=== PATIENT | female | born 1965 | race African-American/Black ===

== ENCOUNTER 2024-03-19 10:01 | Outpatient (REF) | payer OTHER, SELFPAY | END 2024-03-19 10:02 | disposition home or self-care (01) | LOC: HO.LNP 10:01 | PROVIDERS: Visit Provider Internal Medicine Gastroenterology | DX: Z13.89 Encounter for screening for other disorder (principal) | CPT/HCPCS: 83013 ==

== ENCOUNTER 2024-03-19 10:01 | Outpatient (AMB) | payer OTHER, SELFPAY ==
--- NOTE | 2024-03-19 10:03 | MHC.OFFVIS ---
Vital Signs 03/19/24 10:18 Height 5 ft 6 in Weight 141 lb 1.533 oz BMI 22.8 Intake Visit Reasons: Dr.Hassan sneed to see pt Intake Note: Deidre presents in the office as a new patient appt. CC: She states that she was in [place] and she had a GI bleed. She walked in the building and got a stomach pains but she states it could be anxiety. She also had a procedure due to the GI bleed. Final Operations Technician Required: No Allergies aspirin Allergy (Mild, Verified 03/19/24 10:18) Unknown HPI HPI Dr.Hassan sneed to see pt: Details: HPI 58 yr old f here for assessment she was in [place] 6 weeks ago she had vomiting and passed out, she had no abdominal pain she had an EGD as she was anemic and had HGB 8.6 g/dl she had an area of oozing in LES and had 5 clips placed Since then been feeling weak, she has been on iron no melena, no rectal bleeding, no nose bleeds she had anemia few years back at [facility] and had upper and lower GI, with caspule, nothing found does not take nsaid or aspirin ROS: Constitutional : No Weight loss, No Fever, No Chills ENT/Mouth : No sore throat, No Rhinorrhea Eyes: No Swelling, No Redness Cardiovascular : No Chest Pain, No SOB, No Edema Respiratory : No Cough, No Sputum, No Wheezing Gastrointestinal : see HPI Genitourinary : NO Dysuria, No Urinary Frequency, No Hematuria, No Urgency Musculoskeletal : No joint pain, No Myalgias, No Joint Swelling Skin : No Skin Lesions, No rash Neuro : No Weakness, No Numbness, No Dizziness, No Headache Psych : No Anxiety/Panic, No Depression Heme/Lymph: No Bruising, No Lymphadenopathy Endocrine : No Polyuria, No Polydipsia All other systems reviewed and are negative. Medical History osteopenia Surgical History EGD 6 weeks ago EGD and colo, capsule few years back Family History denies FH of ulcers, GI bleeding cancers Social History non smoker, no alcohol, no drug EXAM: GENERAL: The patient is well developed and nontoxic. VITAL SIGNS:see workflow HEENT: Nonicteric sclerae, PERRLA, EOMI. Oropharynx clear. Moist mucous membranes. Conjunctivae appear well perfused. No thyroid mass. CHEST: Chest wall is nontender. HEART: Regular rate and rhythm without murmurs. LUNGS: Clear to auscultation bilaterally. ABDOMEN: Soft, positive bowel sounds, nontender, no organomegaly.no flank tenderness SKIN: No rash, no excessive bruising, petechiae, or purpura. NEUROLOGIC: Cranial nerves II-XII intact without motor/sensory deficit. Psych: normal affect A/P: 1/ Anemia, Acute blood loss, concern for ongoing loss, had EGD with bleeding point lower esophagus, not on PPI PLAN: 1/ check h pylori today 2/ urgent EGD for blood loss anemia --if neg then colo and maybe VCE [facility] Surgical History (Updated 03/19/24 @ 10:22 by DORA Ahumada) Hx of hysterectomy History of esophagogastroduodenoscopy (EGD) Hx of colonoscopy Physical Exam Vital Signs: BMI result Body Mass Index 22.8 Assessment & Plan Assessment & Plan (1) Anemia: Code(s): D64.9 - Anemia, unspecified Category: Medical Plan: see above Coding Level of Care Code New Pt Level 4 (39164) Diagnoses Anemia D64.9
[2024-03-19 10:18] VITALS: BMI 22.8
== END 2024-03-19 11:03 | disposition home or self-care (01) ==
PROVIDERS: PCP Internal Medicine; Visit Provider Internal Medicine Gastroenterology
DX: D64.9 Anemia, unspecified (principal)
CPT/HCPCS: 99204

== ENCOUNTER 2024-03-19 17:47 | Outpatient (REF) | payer OTHER, SELFPAY ==
[2024-03-26 14:24] LABS: H Pylori Breath Test Negative (Negative)
== END 2024-03-19 17:48 | disposition home or self-care (01) ==
LOC: HO.LNP 17:47
PROVIDERS: Visit Provider Internal Medicine Gastroenterology
DX: D64.9 Anemia, unspecified (principal)
CPT/HCPCS: 83013

== ENCOUNTER 2024-03-24 12:17 | Day surgery (SDC) | payer OTHER, SELFPAY ==
--- NOTE | 2024-03-23 09:34 | HO.ANESPROP2 ---
Documented by User: Oksana Olivo NP 03/23/24 09:35 HPI - Anesthesia Eval Consult details Narrative: 58yo F for Upper Endoscopy PMFSH Active Problems Active Problems: All Active Problems Anemia (Acute) Surgical History Surgical History Hx of hysterectomy History of esophagogastroduodenoscopy (EGD) Hx of colonoscopy Meds Allergies Allergy/AdvReac Type Severity Reaction Status Date / Time aspirin Allergy Mild Unknown Verified 03/19/24 10:18 Home Medications ?Medication ?Instructions ?Recorded ?Confirmed ?Last Taken ?Type alendronate 70 mg tablet 70 mg PO QWEEK 03/19/24 Unknown History calcium pantothenate 500 mg tablet 1,200 mg PO 03/19/24 Unknown History cholecalciferol (vitamin D3) 10 10 mcg PO DAILY 03/19/24 Unknown History mcg (400 unit) capsule ferrous gluconate 324 mg (37.5 mg 324 mg PO BID 03/19/24 Unknown History iron) tablet Assessment and Plan Assessment Anesthesia Assessment: Chart Reviewed Documented by User: Luis Enrique Alan MD 03/24/24 15:00 PMFSH Family History Family history of problems with anesthesia: No Surgical History Surgical History Hx of hysterectomy History of esophagogastroduodenoscopy (EGD) Hx of colonoscopy History of Problems with Anesthesia: No Meds Allergies Allergy/AdvReac Type Severity Reaction Status Date / Time aspirin Allergy Mild Unknown Verified 03/19/24 10:18 Home Medications ?Medication ?Instructions ?Recorded ?Confirmed ?Last Taken ?Type alendronate 70 mg tablet 70 mg PO QWEEK 03/19/24 Unknown History calcium pantothenate 500 mg tablet 1,200 mg PO 03/19/24 Unknown History cholecalciferol (vitamin D3) 10 10 mcg PO DAILY 03/19/24 Unknown History mcg (400 unit) capsule ferrous gluconate 324 mg (37.5 mg 324 mg PO BID 03/19/24 Unknown History iron) tablet Exam Airway Mallampati Class: II TM Dist: >3cm Neck ROM: Full Loose/Missing/Broken Teeth: No Heart: ok Lungs: ok Assessment and Plan Assessment Anesthesia Assessment: Anesthesia Plan Discussed Final Anesthetic Review Family History of Problems with Anesthesia: No History of Problems with Anesthesia: No NPO: Yes ASA Class: I Final Preanesthetic Review: No Changes in Pt Med Stat, Meds/Allgs Chart Reviewed, Consent Obtained/Reviewed and Anes Risks/Benef Reviewed Patient Risk: Low Procedure Risk: Intermediate Anesthetic Plan Anesthetic Plan: Agree w/ Assess. and Plan and TIVA Disposition: Standard PACU
[2024-03-24 14:14] VITALS: BMI 22.6
[2024-03-24 14:46] VITALS: BP 134/80; PULSE 72; RESP 16; TEMP 36.6; O2SAT 99
[2024-03-24] MEDS: Lactated Ringers 1,000 ML 100 ML IVCONT (14:53)
--- NOTE | 2024-03-24 14:53 | MHC.SHP ---
Pre-Procedural Eval Section A - 24 Hr Update-Section A only Date of Service: 03/24/24 The patient is an INPATIENT: No The patient has been examined within 24 hours of the surgical procedure. The History & Physical has been completed within 30 days and I have reviewed it.: Yes Section B - Complete if H&P > 30 days Chief Complaint: Anemia, unspecified Allergies: Allergies Allergy/AdvReac Type Severity Reaction Status Date / Time aspirin Allergy Mild Unknown Verified 03/19/24 10:18 Plan Diagnosis/Plan: Unchanged I have reviewed the history and physical and performed a pertinent physical examination on my patient. No changes have occurred unless specified. Time Spent With Patient Time: Total time managing care of this patient today ____ minutes.
--- NOTE | 2024-03-24 15:22 | W.PM.OPN ---
Operative Note Operative Note Date of Service: 03/24/24 Narrative: Procedure Description: EGD Indication: anemia Anesthesia: MAC FLEXIBLE TRANSORAL UPPER GASTROINTESTINAL ENDOSCOPY UPPER ENDOSCOPY Consent: Indications for the procedure and potential complications of bleeding, perforation, reaction to medications and missed diagnosis were discussed with the patient and informed consent was obtained. Instrument: Olympus GIF H 190 J mid size upper endoscope Monitoring: Vital signs and clinical assessment, continuous EKG monitoring, Pulse oximetry, Carbon Dioxide monitoring and blood pressure monitoring were done throughout the procedure. Procedure: The patient was placed in the left lateral decubitis position and pre-procedure medications were administered and a bite block was placed. The endoscope was inserted into the mouth and advanced under direct vision to the third part of duodenum. A careful inspection was made as the upper endoscope was withdrawn including a retroflexed examination of the proximal stomach; Findings and interventions are described below. Findings: Larynx:normal Esophagus: GE junction at 38 cm, diaphragm hiatus at 38 cm, mild esophagitis and irregular z line, bx taken from GEJ, and distal esophagus. one biopsy site continually oozed, x 3 clips applied and hemospray and it ceased, mucosa seemed friable Stomach: patchy atrophic areas with raised erythematous areas possible infiltrative disease . Biopsies were obtained. Grade 2 flap valve on retroflexed examination of the cardia. Duodenum: Normal bulb and descending duodenum, bx taken Intervention: Biopsies as noted above, hemospray Impression/Findings: gastritis PLAN: sucralfate 1 g for 2 weeks GERD precautions if h pylori pos then treat
[2024-03-24 15:31] VITALS: BP 103/67; PULSE 106; RESP 18; TEMP 36.1; O2SAT 99
[2024-03-24 15:46] VITALS: BP 134/90; PULSE 85; RESP 18; TEMP 36.1; O2SAT 99
[2024-03-24 16:00] VITALS: BP 126/79; PULSE 61; RESP 16; TEMP 36.1; O2SAT 99
== END 2024-03-24 16:25 | disposition home or self-care (01) ==
PROVIDERS: PCP Internal Medicine; Visit Provider Internal Medicine Gastroenterology
PROC: 0DJ08ZZ Inspection of Upper Intestinal Tract, Via Natural or Artificial Opening Endoscopic (ICD-10-PCS; CPT 43235; principal; 2024-03-24 15:00)
DX: D64.9 Anemia, unspecified (principal); K29.50 Unspecified chronic gastritis without bleeding; B96.81 Helicobacter pylori [H. pylori] as the cause of diseases classified elsewhere; K22.2 Esophageal obstruction; M85.80 Other specified disorders of bone density and structure, unspecified site; Z88.6 Allergy status to analgesic agent; Z98.890 Other specified postprocedural states
CPT/HCPCS: 43239; 88305; 88313; 88342; J1610; J2003; J2704

== ENCOUNTER → 2024-03-24 12:17 | Outpatient (BNV) | payer OTHER, SELFPAY | PROVIDERS: PCP Internal Medicine; Visit Provider Internal Medicine Gastroenterology | DX: D64.9 Anemia, unspecified (principal); K20.90 Esophagitis, unspecified without bleeding; K29.70 Gastritis, unspecified, without bleeding | CPT/HCPCS: 43239 ==

== ENCOUNTER 2024-03-25 08:17 | Outpatient (AMB) | payer OTHER, SELFPAY ==
--- NOTE | 2024-03-25 09:18 | AM.OFFVISNUR ---
Intake Visit Reasons: H.pylorli Breath Test Allergies aspirin Allergy (Mild, Verified 03/19/24 10:18) Unknown Nursing Note Patient presents for collection of H Pylori breath test. Patient has been fasting for 1 hour (nothing to eat, drink, no chewing gum or smoking) has not taken any antacid medication for at least 2 weeks and has no allergies to artificial sweeteners.?? Assessment & Plan Assessment & Plan (1) H. pylori infection: Code(s): A04.8 - Other specified bacterial intestinal infections Plan Patient presents for collection of H Pylori breath test. Patient has been fasting for 1 hour (nothing to eat, drink, no chewing gum or smoking) has not taken any antacid medication for at least 2 weeks and has no allergies to artificial sweeteners.???This test checks for an overgrowth of bacteria in your stomach. We all have bacteria but some may have more than others. It is treatable. if the test comes back negative there is nothing else to do. If the test result is positive we will treat you with 2 antibiotics and a medication to decrease the acid in your stomach (PPI) for 2 weeks. Two weeks after you have completed the treatment we will retest you to make sure the overgrowth has resolved. Patient Instructions: Process for specimen collection and reason for testing was explained to the patient. Specimen collection. Patient instructed to take a deep breath and then exhale into the blue bag, filling it up as much as possible. Patient instructed to drink a mixture of water and the artificial sweetener with a straw. A 15 minute wait period was observed. Patient instructed to take a deep breath and then exhale into the pink bag, filling it up as much as possible.??
== END 2024-03-25 09:51 | disposition home or self-care (01) ==
PROVIDERS: PCP Internal Medicine; Visit Provider Internal Medicine Gastroenterology
DX: A04.8 Other specified bacterial intestinal infections (principal)

== ENCOUNTER → 2024-03-25 08:17 | Outpatient (BNVA) | payer OTHER, SELFPAY | PROVIDERS: PCP Internal Medicine; Visit Provider Internal Medicine Gastroenterology | DX: Z11.0 Encounter for screening for intestinal infectious diseases (principal) | CPT/HCPCS: 99211 ==

== ENCOUNTER 2024-04-12 10:46 | Outpatient (AMB) | payer OTHER, SELFPAY ==
--- NOTE | 2024-04-12 10:47 | A.OFFVIS_ITS ---
Intake Visit Reasons: S/P EGD; Dr. Archer Intake Note: Deidre presents as a telehealth to go over results to her EGD. Space Systems Operations Manager Required: No Allergies aspirin Allergy (Mild, Verified 04/12/24 10:47) Unknown HPI HPI S/P EGD; Dr. Archer: Details: 58 yr old f called for follow up RECAP: she was in [place] 6 weeks ago she had vomiting and passed out, she had no abdominal pain she had an EGD as she was anemic and had HGB 8.6 g/dl she had an area of oozing in LES and had 5 clips placed Since then been feeling weak, she has been on iron no melena, no rectal bleeding, no nose bleeds she had anemia few years back at [facility] and had upper and lower GI, with capsule, nothing found does not take nsaid or aspirin EGD: 03/24/24 Gastritis, H pylori pos H pylori breath --negative INTERIM: she has occ dizziness no abdominal pain no nausea still on H pylori treatment, 1 week to go EXAM: relaxed, talking easily A/P: 1/ H pylori gastritis, PLAN: 1/ complete treatment, repeat urea breath test 4 weeks after end of treatment 2/ PCP will check HGB PFSH Surgical History Hx of hysterectomy History of esophagogastroduodenoscopy (EGD) Hx of colonoscopy Telehealth Telehealth Telehealth Platform: [employer] Location of provider rendering services: practice address Location of patient: address on file Patient Identification confirmed using: Name, : Yes Telehealth method: video Patient verbally consented to treatment: Yes Patient verbally consented to billing insurance company: Yes Minutes spent on Phone/Video with Pt.: 7 Assessment & Plan Assessment & Plan (1) Anemia: Code(s): D64.9 - Anemia, unspecified Category: Medical Plan: see above Coding Level of Care Code Tele Est Pt Level 3 (41917) Diagnoses Anemia D64.9
== END 2024-04-12 12:55 | disposition home or self-care (01) ==
LOC: HO.HGI 10:47
PROVIDERS: PCP Internal Medicine; Visit Provider Internal Medicine Gastroenterology
DX: D64.9 Anemia, unspecified (principal)
CPT/HCPCS: 99213

== ENCOUNTER → 2024-04-12 10:46 | Outpatient (BNVA) | payer OTHER, SELFPAY | PROVIDERS: PCP Internal Medicine; Visit Provider Internal Medicine Gastroenterology ==

== ENCOUNTER → 2024-06-25 10:21 | Outpatient (BNVA) | payer OTHER, SELFPAY | PROVIDERS: PCP Internal Medicine; Visit Provider Internal Medicine Gastroenterology ==

== ENCOUNTER 2024-09-01 08:18 | Day surgery (SDC) | payer OTHER, SELFPAY ==
--- OUTSIDE RECORDS SUMMARY | 2024-08-04 17:20 | XMS_ITS ---
Author Organization [facility] Address [address] [place] [address] Care Team Providers Care Candy Puller Name Role Phone KOCH, NICKNOMI Unavailable [phone] ALLERGIES No Known Allergies REASON FOR VISIT 2 weeks f/u pt c/o being very tired MEDICATIONS Medication SIG (Take, Route, Frequency, Duration) Notes Start Date End Date Status Omeprazole Magnesium 20 MG 1 tablet 30 m inutes before morning meal Orally Once a day Active Alendronate Sodium 70 MG 1 tablet 30 min utes before the first food, beverage or medicine of the day dissolved in 4 ounces of water Orally Active Ferrous Gluconate 324 (38 Fe) MG 1 tablet Orally Three times a Week Active Calcium 500 MG 1 tablet with meals Orally Twice a day Active Vitamin D 50 MCG (2000 UT) 1 tablet Oral ly Once a day Active SOCIAL HISTORY Tobacco Use: Social History Observation Description Date Details (start date - stop date) Never Smoker NA - NA Sex Assigned At : Social History Observation Description Sex Assigned At Unknown Tobacco Use/Smoking Question Answer Notes Are you a nonsmoker VITAL SIGNS Heart Rate 82 /min 03/10/2024 Blood pressure systolic 128 mm Hg 03/10/20 24 Blood pressure diastolic 80 mm Hg 024 Weight 143.7 lbs 03/10/2024 BMI 23.91 kg/m2 03/10/2024 Height 65 in 03/10/2024 Oximetry 98 % 03/10/2024 Encounters Encounter Location Date Provider Diagnosis [facility] [address] [place] [address] 03/10/2024 MELBA KOCH Other iron deficienc y anemia D50.8 ; Hematochezia K92.1 ; Abdominal pain of unknown etiology R10.9 and Gastrointestinal hemorrhage, unspecified K92.2 ASSESSMENTS Encounter Date Diagnosis Assessment Notes Treatment Notes Treatment Clinical Notes Section Notes 03/10/2024 Other iron deficiency anemia (ICD-10 - D50.8) She feels gaby r, no more episdoes of dark urine. Reviewed discharge notes from [place] as well as her ER visit. We will repeat blood work and follow-up in 10 days. In the meanwhile recommended the patient oral iron. She has an appointment with title supervisor to follow-up for her GI bleedingThere is decline in her hemoglobin since her last appointment. This is worrisome in the setting of recent GI bleed. We will try our best to get her in with GI earlier as she has had appointment on 30 March, but there is no guarantee and the patient understands, we discussed in detail that in case of an emergency she needs to present to the ER immediately. 03/10/2024 Hematochezia (ICD-10 - K92.1) She feels gaby r, no more episdoes of dark urine. Reviewed discharge notes from [place] as well as her ER visit. We will repeat blood work and follow-up in 10 days. In the meanwhile recommended the patient oral iron. She has an appointment with title supervisor to follow-up for her GI bleedingThere is decline in her hemoglobin since her last appointment. This is worrisome in the setting of recent GI bleed. We will try our best to get her in with GI earlier as she has had appointment on 30 March, but there is no guarantee and the patient understands, we discussed in detail that in case of an emergency she needs to present to the ER immediately. 03/10/2024 Abdominal pain of unknown etiology (ICD-10 - R10.9) She feels gaby r, no more episdoes of dark urine. Reviewed discharge notes from [place] as well as her ER visit. We will repeat blood work and follow-up in 10 days. In the meanwhile recommended the patient oral iron. She has an appointment with title supervisor to follow-up for her GI bleedingThere is decline in her hemoglobin since her last appointment. This is worrisome in the setting of recent GI bleed. We will try our best to get her in with GI earlier as she has had appointment on 30 March, but there is no guarantee and the patient understands, we discussed in detail that in case of an emergency she needs to present to the ER immediately. 03/10/2024 Gastrointestinal hemorrhage, unspecified (ICD-10 - K92.2) She feels better , no more episdoes of dark urine. Reviewed discharge notes from [facility] as well as her ER visit. We will repeat blood work and follow-up in 10 days. In the meanwhile recommended the patient oral iron. She has an appointment with title supervisor to follow-up for her GI bleedingThere is decline in her hemoglobin since her last appointment. This is worrisome in the setting of recent GI bleed. We will try our best to get her in with GI earlier as she has had appointment on 30 March, but there is no guarantee and the patient understands, we discussed in detail that in case of an emergency she needs to present to the ER immediately. PLAN OF TREATMENT Pending Test Test Name Order Date HEMOGLOBIN A1c 03/10/2024 HEMATOCRIT 03/10/2024 Next Appt Details Provider Name:MELBA KOCH, 09:30:00 AM, [address], [place], [address], Progress Notes * Deidre RENEEDOB:1965 (4 0 yo F)Acc No.[id number]:03/10/2024 Progress Notes Patient:??Deidre RENEE Provider:??MELBA KOCH MD :1965?Age:58 Y?Sex:Fe male Date:03/10/2024 Address:[address] [place], [place] [id number] Subjective: * Chief Complaints: * ?1. 2 weeks f/u pt c/o being very tired. * HPI: ?Constitutional:? Pt denies dark urine, dysurea. She has no further episodes of GI bleed. She fees better than last time. ?Patient seen and examined. Chart was reviewed and edited. Medications were reviewed. Problem list reviewed updated. Allergies reviewed. Social history reviewed. Reviewed recent labs and imaging design consultant notes. Took permission to exam and offered band instrument maker. * ROS:?All Other Systems:?Review of Systems (ROS)??All others negative except those mentioned in HPI.? * Medical History:??Osteoporos is. * Family History:??Father: dec eased 74 yrs.??Mother: 69 yrs.??2 brother(s) , 2 sister(s) . 2 daughter(s) . .?? dad hx htn mom htn sister passed from hiv. * Social History:?Tobacco Use:??Tobacco Use/Smoking??Are you a??nonsmoker.?? * Medications:??Taking Omepraz ole Magnesium 20 MG Tablet Delayed Release 1 tablet 30 minutes before morning meal Orally Once a day , Taking Alendronate Sodium 70 MG Tablet Effervescent 1 tablet 30 minutes before the first food, beverage or medicine of the day dissolved in 4 ounces of water Orally , Taking Ferrous Gluconate 324 (38 Fe) MG Tablet 1 tablet Orally Three times a Week , Taking Calcium 500 MG Tablet 1 tablet with meals Orally Twice a day , Taking Vitamin D 50 MCG (2000 UT) Tablet 1 tablet Orally Once a day , Medication List reviewed and reconciled with the patient * Allergies:??N.K.D.A. Objective: * Vitals:??HR:82/min, BP:128/8 0mm Hg, Wt:143.7lbs, BMI:23.91Index, Ht: 65 in, Oxygen sat %:98%. * Physical Examination:?PHYSICAL EXAM ?General: Age appropriate (), well appearing, no acute distress, speaking in full sentences without respiratory compromise. Well groomed, well developed. ?Skin: Warm, dry and intact. No lesions/rashes. ?HEENT: Normocephalic/atraumatic. EOMI intact. PERRLA. Vision intact. No ptosis or lid lag. Nares without discharge or inflammation. Oral cavity free of plaques or exudates. Dentition well maintained. No pharyngeal erythema. ?Neck/Thyroid: Supple, with no lymphadenopathy. No carotid artery bruits auscultated. Thyroid free of nodules. Nonenlarged ?Lung: Clear to auscultation bilaterally, no wheezes, rales or rhonchi. No barrel chest. ?Cardiac: S1 and S2 appreciated. No murmurs/rubs or gallops. DP pulses intacts 2+ bilaterally. ?Abdomen: Soft, nontender, normoactive bowel sounds. No reboung/guarding. No CVA tenderness. ?Extremities: Bilateral lower extremities with no edema or rubor. No evidence of varicose veins. ?MSK: Bilateral upper and lower extremities 5/5 strenght with flexion/extension. Frame Cleaner strength 5/5. ?Neuro: CN II-XI grossly intact. Steady gait with ambulation observed. ?Psych: Stable mood and affect. Assessment: * Assessment: 1.??Hematochezia - K92.1 (Pr imary)??2.??Other iron deficiency anemia - D50.8??3.??Abdominal pain of unknown etiology - R10.9??4.??Gastrointestinal hemorrhage, unspecified - K92.2?? She feels better, no more ep isdoes of dark urine. Reviewed discharge notes from [place] as well as her ER visit. We will repeat blood work and follow-up in 10 days. In the meanwhile recommended the patient oral iron. She has an appointment with title supervisor to follow-up for her GI bleedingThere is decline in her hemoglobin since her last appointment. This is worrisome in the setting of recent GI bleed. We will try our best to get her in with GI earlier as she has had appointment on 30 March, but there is no guarantee and the patient understands, we discussed in detail that in case of an emergency she needs to present to the ER immediately. Plan: * Treatment: * Labs:?? * ?Lab: HEMOGLOBIN A1 c ?Lab: HEMATOCRIT * Images: Billing Information: * Visit Code:?? 12204 Office Visit, Est Pt., Level 4. * Procedure Codes:?? Care Plan Details* * Sign off status: Completed true * Provider:??MELBA KOCH MD Date:??10/09/2 024 History and Physical Notes * HPI (History of Present Illness) Category Sub-Category Detail Notes Category Not es Constitutional Pt denies dark urine, dysurea. She has no further episodes of GI bleed. She fees better than last time. Patient seen and examined. Chart was reviewed and edited. Medications were reviewed. Problem list reviewed updated. Allergies reviewed. Social history reviewed. Reviewed recent labs and imaging design consultant notes. Took permission to exam and offered band instrument maker. Physical Examination Category Sub-Category Detail Notes Section Note s PHYSICAL EXAM General: Age appropriate (), well appearing, no acute distress, speaking in full sentences without respiratory compromise. Well groomed, well developed. Skin: Warm, dry and intact. No lesions/rashes. HEENT: Normocephalic/atraumatic. EOMI intact. PERRLA. Vision intact. No ptosis or lid lag. Nares without discharge or inflammation. Oral cavity free of plaques or exudates. Dentition well maintained. No pharyngeal erythema. Neck/Thyroid: Supple, with no lymphadenopathy. No carotid artery bruits auscultated. Thyroid free of nodules. Nonenlarged Lung: Clear to auscultation bilaterally, no wheezes, rales or rhonchi. No barrel chest. Cardiac: S1 and S2 appreciated. No murmurs/rubs or gallops. DP pulses intacts 2+ bilaterally. Abdomen: Soft, nontender, normoactive bowel sounds. No reboung/guarding. No CVA tenderness. Extremities: Bilateral lower extremities with no edema or rubor. No evidence of varicose veins. MSK: Bilateral upper and lower extremities 5/5 strenght with flexion/extension. Frame Cleaner strength 5/5. Neuro: CN II-XI grossly intact. Steady gait with ambulation observed. Psych: Stable mood and affect
--- OUTSIDE RECORDS SUMMARY | 2024-08-04 17:20 | XMS_ITS | Patient Health Record ---
Author Organization [employer] [facility] Address [address] [place] [address] Care Team Providers Care Net Application Architect Name Role Phone MELBA KOCH Unavailable [phone] ALLERGIES No Known Allergies RESULTS Component Value Reference Range Notes CBC With Differential/Platel et-[id number] Reviewed date:03/16/2024 09:19:13 AM Interpretation: Performing Lab:[facility] [place], [address] [place] [address], [place], Phone - [phone], Director - Otto Notes/Report: WBC 2.7 3.4-10.8 x10E3/uL RBC 3.50 3.77-5.28 x10E6/uL Hemoglobin 9.3 11.1-15.9 g/dL Hematocrit 30.6 34.0-46.6 % MCV 87 79-97 fL MCH 26.6 26.6-33.0 pg MCHC 30.4 31.5-35.7 g/dL RDW 13.0 11.7-15.4 % Platelets 215 150-450 x10E3/uL Neutrophils 47 Not Estab. % Lymphs 38 Not Estab. % Monocytes 10 Not Estab. % Eos 4 Not Estab. % Basos 1 Not Estab. % Immature Cells Neutrophils (Absolute) 1.3 1.4-7.0 x10E3/uL Lymphs (Absolute) 1.0 0.7-3.1 x10E3/uL Monocytes(Absolute) 0.3 0.1-0.9 x10E3/uL Eos (Absolute) 0.1 0.0-0.4 x10E3/uL Baso (Absolute) 0.0 0.0-0.2 x10E3/uL Immature Granulocytes 0 Not Estab. % Immature Grans (Abs) 0.0 0.0-0.1 x10E3/uL [facility] Hematology Comments: Hemoglobin [id number] Reviewed date:03/22/2024 11:20:40 AM Interpretation: Performing Lab:[facility] [place], [address] [place] [address], Phone - [phone], Director - Otto Notes/Report: Hemoglobin A1c 5.0 4.8-5.6 % . Prediabetes: 5.7 - 6.4 Diabetes: >6.4 Glycemic control for adults with diabetes: <7.0 Hematocrit-[id number] Reviewed date:03/22/2024 11:20:40 AM Interpretation: Performing Lab:[facility] [place], [address] [place] [address], [place], Phone - [phone], Director - Otto Notes/Report: Hematocrit 34.2 34.0-46.6 % CBC With Differential/Platel et-[id number] Reviewed date:05/07/2024 09:15:17 AM Interpretation: Performing Lab:[facility] [place], [address] [place] [address], [place], Phone - [phone], Director - Otto Notes/Report: WBC 3.2 3.4-10.8 x10E3/uL RBC 4.39 3.77-5.28 x10E6/uL Hemoglobin 11.2 11.1-15.9 g/dL Hematocrit 36.9 34.0-46.6 % MCV 84 79-97 fL MCH 25.5 26.6-33.0 pg MCHC 30.4 31.5-35.7 g/dL RDW 12.8 11.7-15.4 % Platelets 195 150-450 x10E3/uL Neutrophils 41 Not Estab. % Lymphs 42 Not Estab. % Monocytes 11 Not Estab. % Eos 5 Not Estab. % Basos 1 Not Estab. % Immature Cells Neutrophils (Absolute) 1.3 1.4-7.0 x10E3/uL Lymphs (Absolute) 1.4 0.7-3.1 x10E3/uL Monocytes(Absolute) 0.4 0.1-0.9 x10E3/uL Eos (Absolute) 0.2 0.0-0.4 x10E3/uL Baso (Absolute) 0.0 0.0-0.2 x10E3/uL Immature Granulocytes 0 Not Estab. % Immature Grans (Abs) 0.0 0.0-0.1 x10E3/uL [facility] Hematology Comments: Vitamin D, 85-[id number] Reviewed date:04/21/2024 08:56:52 AM Interpretation: Performing Lab:[facility] [address] [place] [address], Phone - [phone], Director - Otto Notes/Report: Vitamin D, 25-Hydroxy 44.8 30.0-100.0 ng/mL Vitamin D deficiency has been defined by the [place] of [employer] and an Endocrine Society practice guideline as a level of serum 25-OH vitamin D less than 20 ng/mL (1,2). The Endocrine Society went on to further define vitamin D insufficiency as a level between 21 and 29 ng/mL (2). 1. IOM ([place] of Medicine). 2010. Dietary reference intakes for calcium and D. [place]: The National [employer]. 2. Sean MF, Jose TENORIO, Seymour GUEVARA, et al. Evaluation, treatment, and prevention of vitamin D deficiency: an Endocrine Society clinical practice guideline. JCEM. 2011 Nov; 96(7):1911-30. Prince Devi CMP14 Default A hand-written panel/profile was received from your office. In accordance with the [facility] Ambiguous Test Code Policy dated November 2002, we have completed your order by using the closest currently or formerly recognized AMA panel. We have assigned Comprehensive Metabolic Panel (14), Test Code #[id number] to this request. If this is not the testing you wished to receive on this specimen, please contact the [facility] Client Inquiry/Technical Services Department to clarify the test order. We appreciate your business. Lipid Panel-[id number] Reviewed date:04/21/2024 08:56:52 AM Interpretation: Performing Lab:[facility] [address] [place] [address], [place], Phone - [phone], Director - Otto Notes/Report: Cholesterol, Total 179 100-199 mg/dL Triglycerides 30 0-149 mg/dL HDL Cholesterol 89 >39 mg/dL VLDL Cholesterol Alfredo 7 5-40 mg/dL LDL Chol Calc ([facility]) 83 0-99 mg/dL LDL Calc Comment: Comp. Metabolic Panel (14)- Reviewed date:04/21/2024 08:56:52 AM Interpretation: Performing Lab:[facility] [place], [address] [place] [address], Phone - [phone], Director - Otto Notes/Report: Glucose 96 70-99 mg/dL BUN 22 8-27 mg/dL Creatinine 0.87 0.57-1.00 mg/dL eGFR 76 >59 mL/min/1.73 BUN/Creatinine Ratio 25 12-28 Sodium 140 134-144 mmol/L Potassium 4.3 3.5-5.2 mmol/L Chloride 100 96-106 mmol/L Carbon Dioxide, Total 25 20-29 mmol/L Calcium 9.9 8.7-10.3 mg/dL Protein, Total 7.1 6.0-8.5 g/dL Albumin 4.5 3.8-4.9 g/dL Globulin, Total 2.6 1.5-4.5 g/dL Bilirubin, Total 0.2 0.0-1.2 mg/dL Alkaline Phosphatase 57 44-121 IU/L AST (SGOT) 27 0-40 IU/L ALT (SGPT) 15 0-32 IU/L Prince Devi LP Default Reviewed date:04/21/2024 08:56:52 AM Interpretation: Performing Lab:[facility], [address] [place] [address], Phone - [phone], Director - Otto Notes/Report: Prince Devi LP Default A hand-written panel/profile was received from your office. In accordance with the [facility] Ambiguous Test Code Policy dated November 2002, we have completed your order by using the closest currently or formerly recognized AMA panel. We have assigned Lipid Panel, Test Code #[id number] to this request. If this is not the testing you wished to receive on this specimen, please contact the [facility] Client Inquiry/Technical Services Department to clarify the test order. We appreciate your business. Comp. Metabolic Panel (14)-[id number] Reviewed date:03/16/2024 09:40:30 AM Interpretation: Performing Lab:[facility], [address] [place] [address], Phone - [phone], Director - Otto Notes/Report: Glucose 112 70-99 mg/dL BUN 10 8-27 mg/dL Creatinine 0.81 0.57-1.00 mg/dL eGFR 83 >59 mL/min/1.73 BUN/Creatinine Ratio 12 12-28 Sodium 138 134-144 mmol/L Potassium 4.5 3.5-5.2 mmol/L Chloride 101 96-106 mmol/L Carbon Dioxide, Total 23 20-29 mmol/L Calcium 10.0 8.7-10.3 mg/dL Protein, Total 7.3 6.0-8.5 g/dL Albumin 4.6 3.8-4.9 g/dL Globulin, Total 2.7 1.5-4.5 g/dL Bilirubin, Total 0.3 0.0-1.2 mg/dL Alkaline Phosphatase 42 44-121 IU/L AST (SGOT) 25 0-40 IU/L ALT (SGPT) 19 0-32 IU/L CBC With Differential/Platel et-[id number] Reviewed date:03/16/2024 09:46:16 AM Interpretation: Performing Lab:[facility], [address] [place] [address], [place], Phone - [phone], Director - Otto Notes/Report: WBC 3.5 3.4-10.8 x10E3/uL RBC 3.52 3.77-5.28 x10E6/uL Hemoglobin 9.5 11.1-15.9 g/dL Hematocrit 31.3 34.0-46.6 % MCV 89 79-97 fL MCH 27.0 26.6-33.0 pg MCHC 30.4 31.5-35.7 g/dL RDW 13.6 11.7-15.4 % Platelets 270 150-450 x10E3/uL Neutrophils 52 Not Estab. % Lymphs 33 Not Estab. % Monocytes 11 Not Estab. % Eos 2 Not Estab. % Basos 1 Not Estab. % Immature Cells Neutrophils (Absolute) 1.9 1.4-7.0 x10E3/uL Lymphs (Absolute) 1.2 0.7-3.1 x10E3/uL Monocytes(Absolute) 0.4 0.1-0.9 x10E3/uL Eos (Absolute) 0.1 0.0-0.4 x10E3/uL Baso (Absolute) 0.0 0.0-0.2 x10E3/uL Immature Granulocytes 1 Not Estab. % Immature Grans (Abs) 0.0 0.0-0.1 x10E3/uL NRBC Hematology Comments: Urinalysis, Complete-[id number] Reviewed date:03/16/2024 09:41:46 AM Interpretation: Performing Lab:[facility] [place], [facility], Phone - [phone], Director - Otto Notes/Report: Specific Bland 1.007 1.005-1.030 pH 7.0 5.0-7.5 Urine-Color Yellow Yellow Appearance Clear Clear WBC Esterase Trace Negative Protein Negative Negative/Trace Glucose Negative Negative Ketones Negative Negative Occult Blood Negative Negative Bilirubin Negative Negative Urobilinogen,Semi-Qn 0.2 0.2-1.0 mg/dL Nitrite, Urine Negative Negative Microscopic Examination See below: Micr oscopic was indicated and was performed. Microscopic Examination WBC None seen 0 - 5 /hpf RBC None seen 0 - 2 /hpf Epithelial Cells (non renal) None seen 0 - 10 /hpf Epithelial Cells (renal) Casts None seen None seen /lpf Cast Type Crystals Crystal Type Mucus Threads Bacteria None seen None seen/Few Yeast Trichomonas Comment Comp. Metabolic Panel (14)-[id number] Reviewed date:03/10/2024 08:50:50 AM Interpretation: Performing Lab:[facility] [place], [facility], Phone - [phone], Director - Otto Notes/Report: Glucose 88 70-99 mg/dL BUN 9 8-27 mg/dL Creatinine 0.64 0.57-1.00 mg/dL eGFR 101 >59 mL/min/1.73 BUN/Creatinine Ratio 14 12-28 Sodium 140 134-144 mmol/L Potassium 3.7 3.5-5.2 mmol/L Chloride 101 96-106 mmol/L Carbon Dioxide, Total 21 20-29 mmol/L Calcium 9.5 8.7-10.3 mg/dL Protein, Total 6.7 6.0-8.5 g/dL Albumin 4.4 3.8-4.9 g/dL Globulin, Total 2.3 1.5-4.5 g/dL Bilirubin, Total 0.2 0.0-1.2 mg/dL Alkaline Phosphatase 41 44-121 IU/L AST (SGOT) 29 0-40 IU/L ALT (SGPT) 24 0-32 IU/L Lipid Panel-[id number] Reviewed date:03/10/2024 08:50:41 AM Interpretation: Performing Lab:[facility] [place], [address] [place] [address], Phone - [phone], Director - Otto Notes/Report: Cholesterol, Total 187 100-199 mg/dL Triglycerides 62 0-149 mg/dL HDL Cholesterol 59 >39 mg/dL VLDL Cholesterol Alfrdeo 12 5-40 mg/dL LDL Chol Calc ([facility]) 116 0-99 mg/dL LDL Calc Comment: Vitamin D, 40-[id number] Reviewed date:03/10/2024 08:41:38 AM Interpretation: Performing Lab:[facility] [place], [address] [place] [address], Phone - [phone], Director - Otto Notes/Report: Vitamin D, 25-Hydroxy 33.0 30.0-100.0 ng/mL Vitamin D deficiency has been defined by the [place] of Medicine and an Endocrine Society practice guideline as a level of serum 25-OH vitamin D less than 20 ng/mL (1,2). The Endocrine Society went on to further define vitamin D insufficiency as a level between 21 and 29 ng/mL (2). 1. IOM ([place] of Medicine). 2010. Dietary reference intakes for calcium and D. [place]: The National Academies Press. 2. Sean MF, Jose [place], Seymour GUEVARA, et al. Evaluation, treatment, and prevention of vitamin D deficiency: an Endocrine Society clinical practice guideline. JCEM. 2010; 96(7):1911-30. CBC With Differential/Platel et-[id number] Reviewed date:03/10/2024 08:45:28 AM Interpretation: Performing Lab:[facility] [place], [address] [place] [address], Phone - [phone], Director - Otto Notes/Report: WBC 4.2 3.4-10.8 x10E3/uL RBC 3.78 3.77-5.28 x10E6/uL Hemoglobin 10.5 11.1-15.9 g/dL Hematocrit 32.8 34.0-46.6 % MCV 87 79-97 fL MCH 27.8 26.6-33.0 pg MCHC 32.0 31.5-35.7 g/dL RDW 13.5 11.7-15.4 % Platelets 218 150-450 x10E3/uL Neutrophils 51 Not Estab. % Lymphs 34 Not Estab. % Monocytes 10 Not Estab. % Eos 4 Not Estab. % Basos 1 Not Estab. % Immature Cells Neutrophils (Absolute) 2.1 1.4-7.0 x10E3/uL Lymphs (Absolute) 1.4 0.7-3.1 x10E3/uL Monocytes(Absolute) 0.4 0.1-0.9 x10E3/uL Eos (Absolute) 0.2 0.0-0.4 x10E3/uL Baso (Absolute) 0.0 0.0-0.2 x10E3/uL Immature Granulocytes 0 Not Estab. % Immature Grans (Abs) 0.0 0.0-0.1 x10E3/uL NRBC Hematology Comments: Note: Verifie d by microscopic examination. [id number] Reviewed date:03/10/2024 08:41:38 AM Interpretation: Performing Lab:[facility], [address] [place] [address], [place], Phone - [phone], Director - Otto Notes/Report: TSH 1.400 0.450-4.500 uIU/mL REASON FOR REFERRAL Reason [facility] GI Diagnosis 1 Gastrointestinal hem orrhage with melena (K92.1) Referral Organization [facility] Referring Provider First Name NICK Referring Provider Last Name ZEE Referring Provider Speciality Internal M edicine Referred Provider Specialty Gastroentero logy General Notes YANIJEREL 0 02/18/2024 10:36:20 AM >waiting for note to close, [phone], p- Clinical Notes Monse Jernigan 2023 10:14:51 AM >, Monse Jernigan 02/25/2024 10:14:53 AM >appt 03/23/2024 Referral Priority Routine Reason GI Bleed with [place] [facility] GI Diagnosis 1 Abdominal pain of un known etiology (R10.9) Referral Organization [facility] Referring Provider First Name NICK Referring Provider Last Name ZEE Referring Provider Speciality Internal M edicine Referred Provider Specialty Gastroentero logy General Notes Dr. Colin Archer - [facility], [facility] ([place]), [address] [place] [address] Dr [address] T[place] [phone], P , F [phone] Clinical Notes Paris Walton 2023 03:09:30 PM >Referral with notes and labs faxed. Called and LVM for pt, new referral for GI appt sent out on request of NKhan. MOURALonnie Redena 04/09/2024 02:02:16 PM > The patient was seen on 03/19 Referral Priority Routine MEDICATIONS Medication SIG (Take, Route, Frequency, Duration) [...] a day Active Vitamin D 50 MCG (1999 UT) 1 tablet Oral ly Once a day Active SOCIAL HISTORY Tobacco Use: Social History Observation Description Date Details (start date - stop date) Never Smoker NA - NA Sex Assigned At : Social History Observation Description Sex Assigned At Unknown Tobacco Use/Smoking Question Answer Notes Are you a nonsmoker PROBLEMS Problem Type ICD Code Onset Dates Problem Status W/U Status Risk SNOMED Code Notes Problem Vitamin D deficiency, unspecified (E55.9) Active confirmed 87078868 Problem Encounter for screening for lipoid disorders (Z13.220) Active confirmed 344463823 Problem Encounter for screening for other suspected endocrine disorder (Z13.29) Active confirmed 446759900 Problem Other iron deficiency anemia (D50.8) Active confirmed 25582886 Problem Adult general medical exam (Z00.00) Active confirmed Adult health examination (939337366) Problem Annual physical exam (Z00.00) Active confirmed 045825931 Problem Diabetes mellitus screening (Z13.1) Active confirmed Diabetes mellitus screening (678703899) VITAL SIGNS Heart Rate 80 /min 03/23/2024 Oximetry 98 % 03/23/2024 Blood pressure diastolic 80 mm Hg 03/23/2024 Height 65 in 03/23/2024 Blood pressure systolic 130 mm Hg 03/23/2024 Weight 142.9 lbs 03/23/2024 BMI 23.78 kg/m2 03/23/2024 Encounters Encounter Location Date Provider Diagnosis [facility] [address] [place] [address] 08/20/2023 MELBA KOCH Adult general medica l exam Z00.00 [facility] [address] [facility] [place] 02/18/2024 MELBA KOCH Hematochezia K92.1 ; Other iron deficiency anemia D50.8 and Acute cystitis with hematuria N30.01 [facility] [address] [facility] [place] 02/25/2024 MELBA KOCH Other iron deficienc y anemia D50.8 ; Hematochezia K92.1 and Acute cystitis with hematuria N30.01 [facility] [address] [facility] [place] 03/10/2024 MELBA KOCH Other iron deficienc y anemia D50.8 ; Hematochezia K92.1 ; Abdominal pain of unknown etiology R10.9 and Gastrointestinal hemorrhage, unspecified K92.2 [facility] [address] [facility] [place] 03/23/2024 MELBA KOCH Other iron deficienc y anemia D50.8 ; Hematochezia K92.1 ; Abdominal pain of unknown etiology R10.9 and Gastrointestinal hemorrhage, unspecified K92.2 [facility] [address] [place] [address] 02/06/[address] [place] [address] [address] [place] [address] 02/11/2024 MELBA KOCH [address] [facility] [address] [address] [place] [address] 02/19/2024 MELBA KOCH [facility] [address] [place] [address] 02/23/2024 MELBA KOCH [facility] [address] [place] [address] 03/12/2024 MELBA KOCH ASSESSMENTS Encounter Date Diagnosis Assessment Notes Treatment Notes Treatment Clinical Notes Section Notes 08/20/2023 Adult general medical exam (ICD-10 - Z00.00) 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 #History of lower GI bleed in December 2021, had complete evaluation including capsule endoscopy that was normal/unable to locate the site of bleed. Patient reports off-and-on lower GI bleed with consumption of meat. #Dkrc-mj-inpf bilaterally knee arthritis, has been recommended surgery, patient reluctant, discussed various outcomes. #Chronic constipation/stomach ache: Patient reports stomach ache whenever she eats. She is trying to find the triggers which include chicken, beef and certain other foods #Osteoporosis diagnosed in 2021, on bisphosphonate since then. Patient seen and examined. Comprehensive discussion was done on the following. 1. Nutrition: It is important to follow a healthy diet based on lots of vegetables and legumes and good fat. Avoid processed food and processed carbohydrates. Learn to prepare your own meals. Learn to read labels and avoid high fructose corn syrup, processed chemicals added to increase shelf life and preprepared meals. Avoid fast foods. Learn to eat slowly and plan meals for a week. Try to count calories and be mindful off daily calorie intake. Get into the habit of keeping an eye on your weight by using an appropriate scale. Learn to log exercise and discussed fitness Apps like [employer] which can help keep log off calories taken versus calories burned. Local food should be preferred. Discussed Dirty Dozen Versus Clean Fifteen. Discussed healthy supplements like fish oil, Tumeric, Curcumin, Melatonin, Resveratrol, Probiotics, Vitamin-D, Alpha-Lipoic acid, Vitamin-D and coconut oil. 2. It is important to exercise regularly. Is a good habit to walk at least 30-45 minutes a day. Gentle weightlifting with standard precautions to protect the back. Finding activity like cycling or hiking and get into the habit of engaging in it. Stretching before and after the exercises important. It is also important to contact me if there are any problems like shortness of breath, chest pain, back pain and joint or muscle pain associated with the exercise. 3. Discussed age appropriate screening guidelines. Colonoscopy needs to start at age 50 with stool for occult blood as appropriate. There is a new test that can test for genetic abnormalities in the stool sample. This would not replace a colonoscopy but could be used as a screening tool for patients who do not want a colonoscopy. We discussed the importance of early detection of colon cancer. 4. Discussed current guidelines with respect to breast examination, mammogram and pap smear for early detection of breast and cervical cancer. Patient advised to follow up with these appointments. 5. Discussed safe driving and no use of smart phone while driving 6. Age-appropriate immunizations were discussed. A tetanus booster is needed every 10 years. Flu vaccine is recommended every year just before the start of the flu season. Shingles vaccine is recommended after age 50 but not all insurances cover it. Pneumonia vaccine is given after age 65 unless there are certain comorbidities for which it is started earlier. 7. Diagnostic labs were discussed. These could include CBC CMP and lipids with fasting blood glucose and insulin levels. Vitamin D and hemoglobin A1c testing might be appropriate. 02/18/2024 Other iron deficiency anemia (ICD-10 - D50.8) Reviewed discha rge notes from [facility] as well as her ER visit. We will repeat blood work and follow-up in 10 days. In the meanwhile recommended the patient oral iron, we will also be requesting an appointment with marketing sales supervisor to follow-up for her GI bleeding. 02/18/2024 Hematochezia (ICD-10 - K92.1) Reviewed discha rge notes from [facility] as well as her ER visit. We will repeat blood work and follow-up in 10 days. In the meanwhile recommended the patient oral iron, we will also be requesting an appointment with marketing sales supervisor to follow-up for her GI bleeding. 02/25/2024 Other iron deficiency anemia (ICD-10 - D50.8) She feels gaby r, no more episdoes of dark urine. Reviewed discharge notes from [place] as well as her ER visit. We will repeat blood work and follow-up in 10 days. In the meanwhile recommended the patient oral iron. She has an appointment with marketing sales supervisor to follow-up for her GI bleeding. 02/25/2024 Hematochezia (ICD-10 - K92.1) She feels gaby r, no more episdoes of dark urine. Reviewed discharge notes from [place] as well as her ER visit. We will repeat blood work and follow-up in 10 days. In the meanwhile recommended the patient oral iron. She has an appointment with marketing sales supervisor to follow-up for her GI bleeding. 03/10/2024 Other iron deficiency anemia (ICD-10 - D50.8) She feels gaby r, no more episdoes of dark urine. Reviewed discharge notes from [facility] as well as her ER visit. We will repeat blood work and follow-up in 10 days. In the meanwhile recommended the patient oral iron. She has an appointment with marketing sales supervisor to follow-up for her GI bleedingThere [...] oral iron. She has an appointment with marketing sales supervisor to follow-up for her GI bleedingThere [...] needs to present to the ER immediately. 03/23/2024 Other iron deficiency anemia (ICD-10 - D50.8) She feels gaby r, no more episdoes of dark urine. Reviewed discharge notes from [place] as well as her ER visit. We will repeat blood work and follow-up in 10 days. In the meanwhile recommended the patient oral iron. She has an appointment with marketing sales supervisor to follow-up for her GI bleedingThere is decline in her hemoglobin since her last appointment. This is worrisome in the setting of recent GI bleed. She has her endoscopy scheduled for tomorrow. 03/23/2024 Hematochezia (ICD-10 - K92.1) She feels gaby r, no more episdoes of dark urine. Reviewed discharge notes from [place] as well as her ER visit. We will repeat blood work and follow-up in 10 days. In the meanwhile recommended the patient oral iron. She has an appointment with marketing sales supervisor to follow-up for her GI bleedingThere is decline in her hemoglobin since her last appointment. This is worrisome in the setting of recent GI bleed. She has her endoscopy scheduled for tomorrow. 03/23/2024 Abdominal pain of unknown etiology (ICD-10 - R10.9) She feels gaby r, no more episdoes of dark urine. Reviewed discharge notes from [place] as well as her ER visit. We will repeat blood work and follow-up in 10 days. In the meanwhile recommended the patient oral iron. She has an appointment with marketing sales supervisor to follow-up for her GI bleedingThere is decline in her hemoglobin since her last appointment. This is worrisome in the setting of recent GI bleed. She has her endoscopy scheduled for tomorrow. 03/10/2024 Abdominal pain of unknown etiology (ICD-10 - R10.9) She feels gaby r, no more episdoes of dark urine. Reviewed discharge notes from [place] as well as her ER visit. We will repeat blood work and follow-up in 10 days. In the meanwhile recommended the patient oral iron. She has an appointment with marketing sales supervisor to follow-up for her GI bleedingThere [...] needs to present to the ER immediately. 02/25/2024 Acute cystitis with hematuria (ICD-10 - N30.01) She feels better , no more episdoes of dark urine. Reviewed discharge notes from [place] as well as her ER visit. We will repeat blood work and follow-up in 10 days. In the meanwhile recommended the patient oral iron. She has an appointment with marketing sales supervisor to follow-up for her GI bleeding. 02/18/2024 Acute cystitis with hematuria (ICD-10 - N30.01) Reviewed dischar ge notes from [place] as well as her ER visit. We will repeat blood work and follow-up in 10 days. In the meanwhile recommended the patient oral iron, we will also be requesting an appointment with marketing sales supervisor to follow-up for her GI bleeding. 03/10/2024 Gastrointestinal hemorrhage, unspecified (ICD-10 - K92.2) She feels better , no more episdoes of dark urine. Reviewed discharge notes from [place] as well as her ER visit. We will repeat blood work and follow-up in 10 days. In the meanwhile recommended the patient oral iron. She has an appointment with marketing sales supervisor to follow-up for her GI bleedingThere [...] needs to present to the ER immediately. 03/23/2024 Gastrointestinal hemorrhage, unspecified (ICD-10 - K92.2) She feels better , no more episdoes of dark urine. Reviewed discharge notes from [facility] as well as her ER visit. We will repeat blood work and follow-up in 10 days. In the meanwhile recommended the patient oral iron. She has an appointment with marketing sales supervisor to follow-up for her GI bleedingThere is decline in her hemoglobin since her last appointment. This is worrisome in the setting of recent GI bleed. She has her endoscopy scheduled for tomorrow. PLAN OF TREATMENT Pending Test Test Name Order Date LIPID PANEL, STANDARD 05/07/2023 LIPID PANEL, STANDARD 03/23/2024 COMPREHENSIVE METABOLIC PANEL 03/23/2024 COMPREHENSIVE METABOLIC PANEL 05/07/2023 COMPREHENSIVE METABOLIC PANEL 02/18/2024 CBC (INCLUDES DIFF/PLT) 02/18/2024 CBC (INCLUDES DIFF/PLT) 02/25/2024 CBC (INCLUDES DIFF/PLT) 05/07/2023 CBC (INCLUDES DIFF/PLT) 03/23/2024 URINALYSIS, COMPLETE 02/18/2024 HEMOGLOBIN A1c 03/10/2024 TSH 05/07/2023 VITAMIN D,25-OH,TOTAL,IA 05/07/2023 VITAMIN D,25-OH,TOTAL,IA 03/23/2024 HEMATOCRIT 03/10/2024 Next Appt Details Provider Name:MELBA KOCH, 09:30:00 AM, [address], [place], [address], Insurance Providers Payer Name Payer Address Payer Phone Subscriber Number Group Number Insured Name Patient Relationship to Insured Coverage Start Date Coverage End Date [facility] [address] [place] [address] [id number] Deidre Sparks Self - patient is the insured 3 MEDICAL (GENERAL) HISTORY Medical History History ICD Code osteoporosis
--- OUTSIDE RECORDS SUMMARY | 2024-08-04 17:20 | XMS_ITS ---
Author Organization [facility] Address [address] [place] [address] Care Team Providers Care Online Facilitator Name Role Phone KOCH, NICKNOMI Unavailable [phone] ALLERGIES No Known Allergies REASON FOR VISIT 2 week f/u pt is getting her endo tomorrow MEDICATIONS Medication SIG (Take, Route, Frequency, Duration) [...] you a nonsmoker VITAL SIGNS Heart Rate 80 /min 03/23/2024 Blood pressure systolic 130 mm Hg 03/23/20 24 Blood pressure diastolic 80 mm Hg 024 Weight 142.9 lbs 03/23/2024 BMI 23.78 kg/m2 03/23/2024 Height 65 in 03/23/2024 Oximetry 98 % 03/23/2024 Encounters Encounter Location Date Provider Diagnosis [facility] [address] [place] [address] 03/23/2024 MELBA KOCH Other iron deficienc y anemia D50.8 ; Hematochezia K92.1 ; Abdominal pain of unknown etiology R10.9 and Gastrointestinal hemorrhage, unspecified K92.2 ASSESSMENTS Encounter Date Diagnosis Assessment Notes Treatment Notes Treatment Clinical Notes Section Notes 03/23/2024 Other iron deficiency anemia (ICD-10 - D50.8) She feels gaby r, no more episdoes of dark urine. Reviewed discharge notes from [place] as well as her ER visit. We will repeat blood work and follow-up in 10 days. In the meanwhile recommended the patient oral iron. She has an appointment with manager completions to follow-up for her GI bleedingThere is decline in her hemoglobin since her last appointment. This is worrisome in the setting of recent GI bleed. She has her endoscopy scheduled for tomorrow. 03/23/2024 Hematochezia (ICD-10 - K92.1) She feels gaby r, no more episdoes of dark urine. Reviewed discharge notes from [facility] as well as her ER visit. We will repeat blood work and follow-up in 10 days. In the meanwhile recommended the patient oral iron. She has an appointment with manager completions to follow-up for her GI bleedingThere is decline in her hemoglobin since her last appointment. This is worrisome in the setting of recent GI bleed. She has her endoscopy scheduled for tomorrow. 03/23/2024 Abdominal pain of unknown etiology (ICD-10 - R10.9) She feels gbay r, no more episdoes of dark urine. Reviewed discharge notes from [place] as well as her ER visit. We will repeat blood work and follow-up in 10 days. In the meanwhile recommended the patient oral iron. She has an appointment with manager completions to follow-up for her GI bleedingThere is decline in her hemoglobin since her last appointment. This is worrisome in the setting of recent GI bleed. She has her endoscopy scheduled for tomorrow. 03/23/2024 Gastrointestinal hemorrhage, unspecified (ICD-10 - K92.2) She feels better , no more episdoes of dark urine. Reviewed discharge notes from [place] as well as her ER visit. We will repeat blood work and follow-up in 10 days. In the meanwhile recommended the patient oral iron. She has an appointment with manager completions to follow-up for her GI bleedingThere is decline in her hemoglobin since her last appointment. This is worrisome in the setting of recent GI bleed. She has her endoscopy scheduled for tomorrow. PLAN OF TREATMENT Pending Test Test Name Order Date LIPID PANEL, STANDARD 03/23/2024 COMPREHENSIVE METABOLIC PANEL 03/23/2024 CBC (INCLUDES DIFF/PLT) 03/23/2024 VITAMIN D,25-OH,TOTAL,IA 03/23/2024 Next Appt Details Provider Name:MELBA KOCH, 09:30:00 AM, [address], [place], [address], Progress Notes * MELVINDeidre ChinchillaDOB:1965 (4 0 yo F)Acc No.[id number]:03/23/2024 Progress Notes Patient:??Deidre RENEE Provider:??MELBA KOCH MD :1965?Age:58 Y?Sex:Fe male Date:03/23/2024 Address:[address] [place], [place] [id number] Subjective: * Chief Complaints: * ?1. 2 week f/u pt is ge tting her endo tomorrow. * HPI: ?Constitutional:? Pt denies dark urine, dysurea. She has no further episodes of GI bleed. She fees better than last time. ?GI for endoscopy. Pt has been feeling better, No more episodes of bleeding. She has an upcoming apointment with Patient seen and examined. Chart was reviewed and edited. Medications were reviewed. Problem list reviewed updated. Allergies reviewed. Social history reviewed. Reviewed recent labs and imaging compensation consultant notes. 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 * ROS:?All Other Systems:?Review of Systems (ROS)??All [...] with the patient * Allergies:??N.K.D.A. Objective: * Vitals:??HR:80/min, BP:130/8 0mm Hg, Wt:142.9lbs, BMI:23.78Index, Ht: 65 in, Oxygen sat %:98%. * [...] and lower extremities 5/5 strenght with flexion/extension. Telephone Lines Repairer strength 5/5. ?Neuro: CN II-XI grossly intact. Steady gait with ambulation observed. ?Psych: Stable mood and affect. Assessment: * Assessment: 1.??Hematochezia - K92.1 (Pr imary)??2.??Other iron deficiency anemia - D50.8??3.??Abdominal pain of unknown etiology - R10.9??4.??Gastrointestinal hemorrhage, unspecified - K92.2?? She feels better, no more ep isdoes of dark urine. Reviewed discharge notes from [facility] as well as her ER visit. We will repeat blood work and follow-up in 10 days. In the meanwhile recommended the patient oral iron. She has an appointment with manager completions to follow-up for her GI bleedingThere is decline in her hemoglobin since her last appointment. This is worrisome in the setting of recent GI bleed. She has her endoscopy scheduled for tomorrow. Plan: * Treatment: * Images: Billing Information: * Visit Code:?? 02364 Office Visit, Est Pt., Level 4. * Procedure Codes:?? Care Plan Details* * Sign off status: Completed true * Provider:??MELBA KOCH MD Date:?? 024 History and Physical Notes * HPI (History of Present Illness) Category Sub-Category Detail Notes Category Not es Constitutional Pt denies dark urine, dysurea. She has no further episodes of GI bleed. She fees better than last time. GI for endoscopy. Pt has been feeling better, No more episodes of bleeding. She has an upcoming apointment with Patient seen and examined. Chart was reviewed and edited. Medications were reviewed. Problem list reviewed updated. Allergies reviewed. Social history reviewed. Reviewed recent labs and imaging compensation consultant notes. 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 Physical Examination Category Sub-Category Detail Notes Section [...] and lower extremities 5/5 strenght with flexion/extension. Telephone Lines Repairer strength 5/5. Neuro: CN II-XI grossly intact. Steady gait with ambulation observed. Psych: Stable mood and affect
--- OUTSIDE RECORDS SUMMARY | 2024-08-04 17:20 | XMS_ITS ---
Author Organization [facility] Address [address] [place] [address] Care Team Providers Care Copper Tapper Name Role Phone MELBA KOCH Unavailable [phone] REASON FOR REFERRAL Reason GI Bleed with [facility] Diagnosis 1 Abdominal pain of un known etiology (R10.9) Referral Organization [facility] Referring Provider First Name MELBA Referring Provider Last Name ZEE Referring Provider Speciality Internal M edicine Referred Provider Specialty Gastroentero logy General Notes Dr. Colin Archer - [facility], [facility] ([place]), [address] [place] [address] [address] [place] [address], P , F [phone] Clinical Notes Paris Walton 2023 03:09:30 PM >Referral with notes and labs faxed. Called and LVM for pt, new referral for GI appt sent out on request of Lonnie Sullivan Redena 04/09/2024 02:02:16 PM > The patient was seen on 03/19 Referral Priority Routine REASON FOR VISIT GI Referral Encounters Encounter Location Date Provider Diagnosis [facility] [address] [place] [address] 03/12/2024 MELBA KOCH PLAN OF TREATMENT Referrals Referral Date Details GI Bleed with [facility] Next Appt Details Provider Name:NICKNOMI ZEE, 09:30:00 AM, [address], [place], [address], Progress Notes * Supriya RENEE:1965 (4 0 yo F)Acc No.[id number]:03/12/2024 Patient:??Deidre RENEE :1965?Age:58 Y?Sex:Fe male Address:[address] [place] [address] Subjective: * Chief Complaints: * ?GI Referral * Medical History:?? * Surgical History:?? * Hospitalization/Major Diagno stic Procedure:?? * Medications:?? Objective: Assessment: Plan: * Treatment: * Procedure Codes:?? * true * Date:?? Consultation Request Notes Referral Date Referring Provider Referred Provider Not yoanna 03/12/2024 MELBA KOCH , GI Bleed with [facility]
[2024-08-30 13:48] VITALS: BMI 23.4
--- NOTE | 2024-08-31 10:24 | HO.ANESPROP2 ---
Documented by User: Oksana Olivo NP 08/31/24 10:24 HPI - Anesthesia Eval Consult details Narrative: 58yo F for Upper Endoscopy [facility] Active Problems Active Problems: All Active Problems Anemia (Acute) Past Medical History Medical History GERD (gastroesophageal reflux disease) Anemia Family History Family history of problems with anesthesia: No Surgical History Surgical History Hx of hysterectomy History of esophagogastroduodenoscopy (EGD) Hx of colonoscopy History of Problems with Anesthesia: No Social History Social History Patient Tobacco Use Status: Never used Tobacco Use of substances other than those prescribed or required for medical reasons: No Have you been hit, kicked, punched, or otherwise hurt by someone within the past year? If so, by whom?: No Advance Directives: No Advance Directives Information Provided: Yes Patient : No Meds Allergies Allergy/AdvReac Type Severity Reaction Status Date / Time aspirin Allergy Mild Unknown Verified 04/12/24 10:47 Home Medications ?Medication ?Instructions ?Recorded ?Confirmed ?Last Taken ?Type alendronate 70 mg tablet 70 mg PO QWEEK 03/19/24 08/30/24 Unknown History calcium pantothenate 500 mg tablet 1,200 mg PO 03/19/24 Unknown History cholecalciferol (vitamin D3) 10 10 mcg PO DAILY 03/19/24 Unknown History mcg (400 unit) capsule ferrous gluconate 324 mg (37.5 mg 324 mg PO BID 03/19/24 Unknown History iron) tablet Exam Height,Weight and Vital Signs: Height 5 ft 6 in Weight 65.771 kg Assessment and Plan Assessment Anesthesia Assessment: Chart Reviewed Final Anesthetic Review Family History of Problems with Anesthesia: No History of Problems with Anesthesia: No Documented by User: Rebeca Call MD 09/01/24 10:03 [facility] Past Medical History Medical History GERD (gastroesophageal reflux disease) Anemia Surgical History Surgical History Hx of hysterectomy History of esophagogastroduodenoscopy (EGD) Hx of colonoscopy Social History Social History Patient Tobacco Use Status: Never used Tobacco Use of substances other than those prescribed or required for medical reasons: No Have you been hit, kicked, punched, or otherwise hurt by someone within the past year? If so, by whom?: No Advance Directives: No Advance Directives Information Provided: Yes Patient : No Meds Allergies Allergy/AdvReac Type Severity Reaction Status Date / Time aspirin Allergy Mild Unknown Verified 04/12/24 10:47 Home Medications ?Medication ?Instructions ?Recorded ?Confirmed ?Last Taken ?Type alendronate 70 mg tablet 70 mg PO QWEEK 03/19/24 08/30/24 Unknown History calcium pantothenate 500 mg tablet 1,200 mg PO 03/19/24 Unknown History cholecalciferol (vitamin D3) 10 10 mcg PO DAILY 03/19/24 Unknown History mcg (400 unit) capsule ferrous gluconate 324 mg (37.5 mg 324 mg PO BID 03/19/24 Unknown History iron) tablet Exam Airway Mallampati Class: II TM Dist: >3cm Neck ROM: Full Heart: rrr Lungs: cta Assessment and Plan Assessment Anesthesia Assessment: Anesthesia Plan Discussed Final Anesthetic Review NPO: Yes ASA Class: II Final Preanesthetic Review: No Changes in Pt Med Stat, Meds/Allgs Chart Reviewed and Consent Obtained/Reviewed Patient Risk: Low Procedure Risk: Intermediate Anesthetic Plan Anesthetic Plan: MAC: Disposition: Standard PACU
[2024-09-01 09:09] VITALS: BMI 23.8
[2024-09-01 09:23] VITALS: BP 132/78; PULSE 64; RESP 18; TEMP 36.3; O2SAT 99
--- NOTE | 2024-09-01 09:29 | P.HPSUR_ITS ---
Pre-Procedural Eval Section A - 24 Hr Update-Section A only Date of Service: 09/01/24 Section B - Complete if H&P > 30 days Chief Complaint: Helicobacter pylori [H. pylori] as the cause of di Relevant Family History (Specify if Yes): No Relevant Social History: None Present Medications: see Short Stay Collaborative assessment Medical History: Significant History (h pylori, osteoporosis ) History of Previous Operations: Relevant previous surgery/procedure and date(s) (Hx of hysterectomy History of esophagogastroduodenoscopy (EGD) Hx of colonoscopy) Allergies: Allergies Allergy/AdvReac Type Severity Reaction Status Date / Time aspirin Allergy Mild Unknown Verified 04/12/24 10:47 Review of Systems Sugical H&P ROS: Negative: Constitution, Cardiovascular, Respiratory, Neurological, Psychiatric, Hem-Onc, Allergic/Immunologic, Gastrointestinal, Genitourinary, Musculoskeletal, Integumentary, Endocrine and Eyes/Ears/Nose/Throat Exam Surgical H&P Exam: Normal: HEENT, Normal: Heart, Normal: Lungs, Normal: Ex tremities, Normal: Abdomen, Normal: Skin and Normal: Neurological Plan Diagnosis/Plan: Unchanged I have reviewed the history and physical and performed a pertinent physical examination on my patient. No changes have occurred unless specified. Time Spent With Patient Time: Total time managing care of this patient today ____ minutes.
[2024-09-01] MEDS: Lactated Ringers 1,000 ML 100 ML IVCONT (09:41)
--- NOTE | 2024-09-01 10:25 | W.PM.OPN ---
Operative Note Operative Note Date of Service: 09/01/24 Narrative: Procedure Description: EGD Indication: epigastric pain Anesthesia: MAC FLEXIBLE TRANSORAL UPPER GASTROINTESTINAL ENDOSCOPY UPPER ENDOSCOPY Consent: Indications for the procedure and potential complications of bleeding, perforation, reaction to medications and missed diagnosis were discussed with the patient and informed consent was obtained. Instrument: Olympus GIF H 190 J mid size upper endoscope Monitoring: Vital signs and clinical assessment, continuous EKG monitoring, Pulse oximetry, Carbon Dioxide monitoring and blood pressure monitoring were done throughout the procedure. Procedure: The patient was placed in the left lateral decubitis position and pre-procedure medications were administered and a bite block was placed. The endoscope was inserted into the mouth and advanced under direct vision to the third part of duodenum. A careful inspection was made as the upper endoscope was withdrawn including a retroflexed examination of the proximal stomach; Findings and interventions are described below. Findings: Larynx:normal Esophagus: GE junction at 38 cm, diaphragm hiatus at 38 cm, mild esophagitis and possible x 2 tongues of short segment barretts, bx taken, one clip applied to one area for hemostasis. LEs was patulous Stomach: patchy atrophic areas with erythema . Biopsies were obtained. Grade 2 flap valve on retroflexed examination of the cardia. good peristalsis noted. Duodenum: Normal bulb and descending duodenum, bx taken Intervention: Biopsies as noted above, clip applied Impression/Findings: gastritis patulous LES possible barretts PLAN: cont with PPI- if not working can change formulation GERD precautions if h pylori pos then treat again
[2024-09-01 10:27] VITALS: BP 93/55; PULSE 70; RESP 16; TEMP 36.4; O2SAT 97
[2024-09-01 10:42] VITALS: BP 126/79; PULSE 80; RESP 16; TEMP 36.3; O2SAT 100
== END 2024-09-01 11:29 | disposition home or self-care (01) ==
PROVIDERS: PCP Internal Medicine; Visit Provider Internal Medicine Gastroenterology
PROC: 0DJ08ZZ Inspection of Upper Intestinal Tract, Via Natural or Artificial Opening Endoscopic (ICD-10-PCS; CPT 43235; principal; 2024-09-01 10:10)
DX: D64.9 Anemia, unspecified (principal); K29.60 Other gastritis without bleeding; K21.00 Gastro-esophageal reflux disease with esophagitis, without bleeding; K22.4 Dyskinesia of esophagus; Z90.710 Acquired absence of both cervix and uterus
CPT/HCPCS: 43239; 88305; 88312; 88313; 88342; J2003; J2704

== ENCOUNTER → 2024-09-01 08:18 | Outpatient (BNV) | payer OTHER, SELFPAY | PROVIDERS: PCP Internal Medicine; Visit Provider Internal Medicine Gastroenterology | DX: K20.90 Esophagitis, unspecified without bleeding (principal); K29.70 Gastritis, unspecified, without bleeding; K22.4 Dyskinesia of esophagus | CPT/HCPCS: 43239 ==

== ENCOUNTER 2024-12-20 10:17 | Outpatient (AMB) | payer OTHER, SELFPAY ==
--- NOTE | 2024-12-20 10:20 | MHC.OFFVIS ---
Vital Signs 12/20/24 10:25 Height 5 ft 6 in Weight 145 lb 8.081 oz BMI 23.5 BP 132/76 Blood Pressure Location Lt brachial Position Sitting Pulse 87 Intake Visit Reasons: s/p egd Intake Note: Deidre presents in the office as a follow up for her EGD. CC: states that she is having pains in the left side of her flank area and gas pains. She gets constipation and acid reflux. Pilates Instructor Required: No Allergies aspirin Allergy (Mild, Verified 12/20/24 10:25) Unknown HPI HPI s/p egd: Details: 59 yr old f being seen for follow up RECAP: she was in [place] 6 weeks ago she had vomiting and passed out, she had no abdominal pain she had an EGD as she was anemic and had HGB 8.6 g/dl she had an area of oozing in LES and had 5 clips placed Since then been feeling weak, she has been on iron no melena, no rectal bleeding, no nose bleeds she had anemia few years back at [facility] and had upper and lower GI, with capsule, nothing found does not take nsaid or aspirin EGD: 03/24/24 Gastritis, H pylori pos H pylori breath --negative EGD 09/24: gastritis patulous LES possible barretts Path: esophagitis INTERIM: she has issues with bloating she has LUQ pain, like pinching goes into bad no urine sx occ nausea no arm or leg weakness appetite is variable weight is stable she has noted constipation --had colonoscopy 3 yrs ago and was normal EXAM: GENERAL: The patient is well developed and nontoxic. VITAL SIGNS:see workflow HEENT: Nonicteric sclerae, PERRLA, EOMI. Oropharynx clear. Moist mucous membranes. Conjunctivae appear well perfused. No thyroid mass. CHEST: Chest wall is nontender. HEART: Regular rate and rhythm without murmurs. LUNGS: Clear to auscultation bilaterally. ABDOMEN: Soft, positive bowel sounds, nontender, no organomegaly.no flank tenderness SKIN: No rash, no excessive bruising, petechiae, or purpura. NEUROLOGIC: Cranial nerves II-XII intact without motor/sensory deficit. Psych: normal affect MS: left side tenderness, lower back , worse with rotaiton some spasm noted A/P: 1/ Left lower back, sprain prob from heavy lifitng ddx: kidney stones 2/ consitpation PLAN: 1/ reviewed diet advice, add miralax 2/ UA and US 3/ if ongoing constipation then colonoscopy PFSH Medical History GERD (gastroesophageal reflux disease) Anemia Surgical History Hx of hysterectomy History of esophagogastroduodenoscopy (EGD) Hx of colonoscopy Social History Patient Tobacco Use Status: Never used Tobacco Physical Exam Vital Signs: Last Vital Signs Pulse 87 12/20/24 10:25 BP 132/76 12/20/24 10:25 BMI result Body Mass Index 23.5 Assessment & Plan Assessment & Plan (1) Left flank pain: Code(s): R10.9 - Unspecified abdominal pain Category: Medical Plan: as above Orders: Orders US abdomen complete Today R10.9 - Unspecified abdominal pain UA CC w/rflx Micro + Cult Today R30.0 - Dysuria Medications: New polyethylene glycol 3350 (Miralax) 17 grams PO BID 238 grams 1RF Coding Level of Care Code Est Pt Level 3 (57336) Diagnoses Left flank pain R10.9
[2024-12-20 10:25] VITALS: BP 132/76; PULSE 87; BMI 23.5
--- OUTSIDE RECORDS SUMMARY | 2024-12-20 11:14 | XMS_ITS | Clinical Summary ---
Author Organization [facility] Address [address] [place] [address] [place] [phone] Phone Care Team Providers Care Contact Lens Polisher Name Role Phone Alli Perera MD Primary Care Provider Allergies Active Allergy Reactions Criticality Noted Date Comments Milk Containing Products (Dairy) GI Upset 01/2020 Wheat GI Upset 06/09/2019 Medications multivitamin-min erals-lutein (CENTRUM SILVER) Tab Take 1 tablet by mouth daily. Active Active Problems Problem Noted Date Diagnosed Date Encounter for annual routine gynecological exami [facility] 05/21/2019 Cystocele with rectocele 03/27/2018 Immunizations Immunization Administration Dates Next Due Influenza Quadrivalent MDCK w/Preservative IM Influenza Quadrivalent Preservative Free IM 02/01,03/01/2018 Family History Medical History Relation Comments Heart disease Father Heart attack Mother Hypertension Mother HIV Sister 5 Relation Status Comments Brother 1 Alive Brother 2 Alive Brother 3 Alive Father Maternal Grandfather Maternal Grandmother Mother Paternal Grandfather Paternal Grandmother Sister 1 Alive Sister 2 Alive Sister 3 Alive Sister 4 Alive Sister 5 Social History Tobacco Use Types Packs/Day Years Used Date Smoking Tobacco: Never Smokeless Tobacco: Never Alcohol Use Standard Drinks/Week Comments No 0 (1 standard drink = 0.6 oz pur e alcohol) Education Answer Date Recorded Are you interested in more education? Not on cecile e 09/27/2022 Are you concerned about learning? Not on file 09/27/2022 No 09/27/2022 No 09/27/2022 Digital Access Answer Date Recorded No 10/26/2022 No 10/26/2022 Reliable internet access at home? Not on file 10/26/2022 Device with a working camera? 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 Not on file Not on file Not on file Last Filed Vital Signs Vital Sign Reading Time Taken Comments Blood Pressure 122/76 06/09/2019 8:04 AM EST Pulse - - Temperature - - Respiratory Rate - - Oxygen Saturation - - Inhaled Oxygen Concentration - - Weight 71.7 kg (158 lb) 06/09/2019 8:04 AM EST Height 170.2 cm (5' 7 ) 06/09/2019 8:04 AM EST Body Mass Index 24.75 06/09/2019 8:04 AM EST Plan of Treatment Health Maintenance Due Date Last Done Comments Adult Td,Tdap Booster 1965 LIPID PANEL 1965 DEPRESSION SCREENING 1975 HEPATITIS C SCREENING 09/13/1981 HIV ONE-TIME SCREENING (18-6 5 YEARS) 09/13/1981 COLOGUARD 09/13/2008 COLONOSCOPY 09/13/2008 COLORECTAL CANCER SCREENING 09/13/2008 FIT TEST 09/13/2008 FOBT 09/13/2008 SIGMOIDOSCOPY 09/13/2008 VIRTUAL COLONOSCOPY 09/13/2008 PNEUMOCOCCAL VACCINES (50+ years) (1 of 1 - PCV) 09/13/2013 ZOSTER VACCINES (1 of 2) 09/13/2013 MAMMOGRAM 06/05/2021 06/05/2019 COVID-19 VACCINE (3 - 2023-2 5 season) 2024 07/21/2020, 06/23/2020 RSV VACCINE (1 - 1-dose 75+ series) 09/13/2038 SMOKING STATUS SCREENING (On ce After 26 Yrs) Completed 06/09/2019 HEPATITIS A VACCINES Aged Out No long er eligible based on patient's age to complete this topic HIB VACCINES Aged Out No longer eligi ble based on patient's age to complete this topic MENINGOCOCCAL VACCINES (ACWY) Aged Out No longer eligible based on patient's age to complete this topic MENINGOCOCCAL VACCINES (B) Aged Out N o longer eligible based on patient's age to complete this topic Medical Devices Not on file Procedures Procedure Name Priority Date/Time Associated Diagnosis Comments MAMMOGRAPHY Routine 06/05/2019 from Last 3 Months or Most Recently Relevant to Health Maintenance Results * MAMMOGRAPHY FOR RESULT ENTRY ONLY (06/05/2019) Blake Glez MD HEALTH MAINTENANCE Final Result from Last 3 Months or Most Recently Relevant to Health Maintenance Insurance Care Teams Contact Lens Polisher Relationship Specialty Start Date End Date Alli Perera MD [address] [place] [phone] PCP - General Internal Medicine 03/27/18 Additional Source Comments The information contained in this document represents components of the legal health record. It is not the complete legal health record.[facility]
== END 2024-12-20 11:18 | disposition home or self-care (01) ==
LOC: HO.HGI 10:17
PROVIDERS: PCP Internal Medicine; Visit Provider Internal Medicine Gastroenterology
DX: R10.9 Unspecified abdominal pain (principal)
CPT/HCPCS: 99213

== ENCOUNTER 2025-02-14 07:59 | Outpatient (REF) | payer OTHER, SELFPAY ==
--- NOTE | ~2025-02-14 | US_ITS ---
EXAMINATION: US ABDOMEN COMPLETE CLINICAL INFORMATION: Left flank pain. Abdominal pain, rule out stone. COMPARISON: None available. TECHNIQUE: Real-time imaging of the abdominal viscera. FINDINGS: PANCREAS: Visualized portions are unremarkable. ABDOMINAL AORTA: The proximal, mid, and distal segments are normal in caliber. INFERIOR VENA CAVA: Visualized portions are normal. LIVER: The liver is normal in size. Right hepatic lobe measures 14.8 cm in length. The liver contour is normal. There is diffuse increased liver parenchymal echogenicity, consistent with hepatic steatosis. No focal hepatic lesion. There is no intrahepatic biliary duct dilatation seen. GALLBLADDER: The gallbladder is physiologically distended without evidence of stones, sludge, polyps, wall thickening or pericholecystic fluid. COMMON BILE DUCT: Normal in caliber measuring 0.8 cm in diameter distally. RIGHT KIDNEY: No hydronephrosis. No renal calculi or focal parenchymal lesions. The kidney measures 9.1 cm in maximum dimension. LEFT KIDNEY: No hydronephrosis. No focal parenchymal lesions. The kidney measures 10.2 cm in maximum dimension. There are several tiny punctate nonshadowing echogenic foci in the kidney, possibly representing tiny renal calculi versus artifacts. SPLEEN: The spleen measures 8.0 cm in maximum dimension. FREE FLUID: None. US/US abdomen complete IMPRESSION: 1. Mild increased hepatic echogenicity without focal lesion. Findings most likely represent mild steatosis. 2. Normal gallbladder and bile ducts. 3. No hydronephrosis of either kidney. Several tiny punctate nonshadowing echogenic foci in the left kidney, possibly representing tiny renal calculi versus artifacts. Electronically signed by: Deven Vaca MD 02/14/2025 09:07 AM EDT
--- OUTSIDE RECORDS SUMMARY | 2025-02-14 08:01 | XMS_ITS | Patient Health Record ---
Author Organization [facility] Address [address] [facility] [address] Care Team Providers Care Temp Recruiter Name Role Phone Alli Perera MD Primary Care Provider UnavailOh Ramirez Unavailable [phone] Reason For Referral No Information Medications Medication SIG (Take, Route, Frequency, Duration) Notes Start Date End Date Status Work Note . . . Pt may return to work regular hours and duty starting Friday04/11/14; Duration: . 04/07/2014 Active Work Note . . . Medical from [facility] for the next 2-3 weeks until next visit; Duration: . 02/02/2014 Active Tylenol 1 tab Oral 02/02/2014 Active Work Note . . . Light duty at [employer] for the next 4 weeks until next visit; Duration: . Active Work Note . . . Light duty at [employer] starting 02/21/14, for the next 2-3 weeks until next visit; Duration: . Active Social History Tobacco use other than smoking: Question Answer Notes Are you an other tobacco user? No Problems Problem Type SNOMED Code ICD Code Onset Dates Problem Status W/U Status Risk Notes Problem Closed fracture of phalanx of foot (02238584) Fx Toes (826.0) Active confirmed Improved Plan Of Treatment No Information Insurance Providers Payer Name Payer Address Payer Phone Subscriber Number Group Number Insured Name Patient Relationship to Insured Coverage Start Date Coverage End Date [facility] [address] [place] [address] [phone] [id number] Rausch Self - patient is the insured Medical (General) History Medical History History ICD Code Arthritis Surgical History Surgery Date(Month/Year) oopherectomy
--- OUTSIDE RECORDS SUMMARY | 2025-02-14 08:01 | XMS_ITS ---
Author Name [facility] Organization Unknown Care Team Organization Name Specialty Phone Email Start Date End [facility] 12/18/2023 01/07/2024
--- OUTSIDE RECORDS SUMMARY | 2025-02-14 08:01 | XMS_ITS | Clinical Summary ---
Author Organization [facility] Address [address] [place] [address] [place] [phone] Phone Care Team Providers Care Calibration Checker Name Role Phone Alli Perera MD Primary Care Provider Allergies Active Allergy Reactions Criticality Noted Date Comments Milk Containing Products (Dairy) GI Upset 01/2020 Wheat GI Upset 06/09/2019 Medications multivitamin-min erals-lutein (CENTRUM SILVER) Tab Take 1 tablet by mouth daily. Active Active Problems Problem Noted Date Diagnosed Date Encounter for annual routine gynecological exami [facility] 05/21/2019 Cystocele with rectocele 03/27/2018 Immunizations Immunization [...] (1 of 2) 09/13/2013 MAMMOGRAM 06/05/2021 06/05/2019 INFLUENZA VACCINE (#1) 2024 9, 03/01/2018, 03/14/2017 COVID-19 VACCINE (3 - 2024-2 6 season) 2025 07/21/2020, 06/23/2020 RSV VACCINE (1 - 1-dose [...] Recently Relevant to Health Maintenance Results * HM MAMMOGRAPHY FOR RESULT ENTRY ONLY (06/05/2019) Blake Glez MD HEALTH MAINTENANCE Final Result from Last 3 Months or Most Recently Relevant to Health Maintenance [place] [address] [place] [address] [place] [address] [place] [address] [place] [address] [place] [address] HMO Care Teams Calibration Checker Relationship Specialty Start Date End Date Alli Perera MD [address] [place] [phone] PCP - General Internal Medicine 03/27/18 Additional Source Comments The information contained in this document represents components of the legal health record. It is not the complete legal health record.[facility]
--- OUTSIDE RECORDS SUMMARY | 2025-02-14 08:02 | XMS_ITS | Patient Health Record ---
Author Organization [facility] [address] Address [address] [place] [address] Care Team Providers Care Videotape Operator Name Role Phone MELBA KOCH Unavailable [phone] Allergies No Known Allergies Results Component Value Reference Range Notes CBC With Differential/Platel et-[id number] Reviewed date:10/21/2024 09:00:48 AM Interpretation: Performing Lab:[facility] [place], [address] [place] [address], [place], Phone - [phone], Director - Otto Notes/Report: WBC 4.0 3.4-10.8 x10E3/uL RBC 4.51 3.77-5.28 x10E6/uL Hemoglobin 12.1 11.1-15.9 g/dL Hematocrit 38.1 34.0-46.6 % MCV 85 79-97 fL MCH 26.8 26.6-33.0 pg MCHC 31.8 31.5-35.7 g/dL RDW 12.9 11.7-15.4 % Platelets 203 150-450 x10E3/uL Neutrophils 42 Not Estab. % Lymphs 43 Not Estab. % Monocytes 8 Not Estab. % Eos 6 Not Estab. % Basos 1 Not Estab. % Neutrophils (Absolute) 1.7 1.4-7.0 x10E3/uL Lymphs (Absolute) 1.7 0.7-3.1 x10E3/uL Monocytes(Absolute) 0.3 0.1-0.9 x10E3/uL Eos (Absolute) 0.2 0.0-0.4 x10E3/uL Baso (Absolute) 0.0 0.0-0.2 x10E3/uL Immature Granulocytes 0 Not Estab. % Immature Grans (Abs) 0.0 0.0-0.1 x10E3/uL TSH-[id number] Reviewed date:10/21/2024 09:00:48 AM Interpretation: Performing Lab:[facility] [place], [address] [place] [address], Phone - [phone], Director - Otto Notes/Report: TSH 1.280 0.450-4.500 uIU/mL Vitamin D, 87-Qapngey-[id number] Reviewed date:10/21/2024 09:00:48 AM Interpretation: Performing Lab:[facility] [place], [address] [place] [address], Phone - [phone], Director - [place] Notes/Report: Vitamin D, 25-Hydroxy 42.3 30.0-100.0 ng/mL Vitamin D deficiency has been defined by the [place] [employer] and an Endocrine Society practice guideline as a level of serum 25-OH vitamin D less than 20 ng/mL (1,2). The Endocrine Society went on to further define vitamin D insufficiency as a level between 21 and 29 ng/mL (2). 1. IOM ([place] of [employer]). 2010. Dietary reference intakes for calcium and D. [place]: The National Academies Press. 2. Sean MF, Jose [place], Addison-Chuckie GUEVARA, et al. Evaluation, treatment, and prevention of vitamin D deficiency: an Endocrine Society clinical practice guideline. JCEM. 2010; 96(7):1911-30. Prince Devi LP Default Reviewed date:04/21/2024 08:56:52 AM Interpretation: Performing Lab:[facility], [address] [place] [address], Phone - [phone], Director - Otto Notes/Report: Prince Devi LP Default A hand-written panel/profile was received from your office. In accordance with the [facility] Ambiguous Test Code Policy dated November 2002, we have completed your order by using the closest currently or formerly recognized AMA panel. We have assigned Lipid Panel, Test Code #[id number] to this request. If this is not the testing you wished to receive on this specimen, please contact [facility] to clarify the test order. We appreciate your business. Comp. Metabolic Panel (14)-[id number] Reviewed date:04/21/2024 08:56:52 AM Interpretation: Performing Lab:[facility] [address] [place] [address], Phone - [phone], Director - Otto Notes/Report: Glucose 96 70-99 [...] 0-40 IU/L ALT (SGPT) 15 0-32 IU/L Lipid Panel-[id number] Reviewed date:04/21/2024 08:56:52 AM Interpretation: Performing Lab:[facility] [place], [address] [place] [address], Phone - [phone], Director - Otto Notes/Report: Cholesterol, Total 179 100-199 mg/dL Triglycerides 30 0-149 mg/dL HDL Cholesterol 89 >39 mg/dL VLDL Cholesterol Alfredo 7 5-40 mg/dL LDL Chol Calc (NIH) 83 0-99 mg/dL Vitamin D, 73-Idnscud-[id number] Reviewed date:04/21/2024 08:56:52 AM Interpretation: Performing Lab:[facility], [address] [place] [address], Phone - [phone], Director - Otto Notes/Report: Vitamin D, 25-Hydroxy 44.8 30.0-100.0 ng/mL Vitamin D deficiency has been defined by the [place] of [employer] and an Endocrine Society practice guideline as a level of serum 25-OH vitamin D less than 20 ng/mL (1,2). The Endocrine Society went on to further define vitamin D insufficiency as a level between 21 and 29 ng/mL (2). 1. IOM ([place] of [employer]). 2010. Dietary reference intakes for calcium and D. [place]: The National Academies Press. 2. Sean MF, Jose [place], Seymour GUEVARA, et al. Evaluation, treatment, and prevention of vitamin D deficiency: an Endocrine Society clinical practice guideline. JCEM. 2010; 96(7):1911-30. Prince Devi CMP14 Default A hand-written panel/profile was received from your office. In accordance with the [facility] Ambiguous Test Code Policy dated November 2002, we have completed your order by using the closest currently or formerly recognized AMA panel. We have assigned Comprehensive Metabolic Panel (14), Test Code #[id number] to this request. If this is not the testing you wished to receive on this specimen, please contact the [facility] Client Inquiry/Technical Services Department to clarify the test order. We appreciate your business. CBC With Differential/Platel et-[id number] Reviewed date:05/07/2024 09:15:17 AM Interpretation: Performing Lab:[facility] [place], [address], [place], Phone - [phone], Director - Otto Notes/Report: WBC 3.2 3.4-10.8 [...] Estab. % Basos 1 Not Estab. % Neutrophils (Absolute) 1.3 1.4-7.0 x10E3/uL Lymphs (Absolute) 1.4 0.7-3.1 x10E3/uL Monocytes(Absolute) 0.4 0.1-0.9 x10E3/uL Eos (Absolute) 0.2 0.0-0.4 x10E3/uL Baso (Absolute) 0.0 0.0-0.2 x10E3/uL Immature Granulocytes 0 Not Estab. % Immature Grans (Abs) 0.0 0.0-0.1 x10E3/uL Hematocrit-[id number] Reviewed date:03/22/2024 11:20:40 AM Interpretation: Performing Lab:[facility] [place], [address] [facility], Phone - [phone], Director - Otto Notes/Report: Hematocrit 34.2 34.0-46.6 % Hemoglobin [id number] Reviewed date:03/22/2024 11:20:40 AM Interpretation: Performing Lab:[facility] [place], [address] [place] [address], [place], Phone - [phone], Director - Otto Notes/Report: Hemoglobin A1c 5.0 4.8-5.6 % . Prediabetes: 5.7 - 6.4 Diabetes: >6.4 Glycemic control for adults with diabetes: <7.0 CBC With Differential/Platel et-[id number] Reviewed date:03/16/2024 09:19:13 AM Interpretation: Performing Lab:[facility] [place], [address] [place] [address], [place], Phone - [phone], Director - Otto Notes/Report: WBC 2.7 3.4-10.8 [...] Estab. % Basos 1 Not Estab. % Neutrophils (Absolute) 1.3 1.4-7.0 x10E3/uL Lymphs (Absolute) 1.0 0.7-3.1 x10E3/uL Monocytes(Absolute) 0.3 0.1-0.9 x10E3/uL Eos (Absolute) 0.1 0.0-0.4 x10E3/uL Baso (Absolute) 0.0 0.0-0.2 x10E3/uL Immature Granulocytes 0 Not Estab. % Immature Grans (Abs) 0.0 0.0-0.1 x10E3/uL Comp. Metabolic Panel (14)-[id number] Reviewed date:03/16/2024 09:40:30 AM Interpretation: Performing Lab:[facility], [address] [facility], Phone - [phone], Director - Otto Notes/Report: Glucose 112 70-99 [...] (SGPT) 19 0-32 IU/L CBC With Differential/Platel et-[id number] Reviewed date:03/16/2024 09:46:16 AM Interpretation: Performing Lab:[facility], [address] [facility], [place], Phone - [phone], Director - Z[place]y Notes/Report: WBC 3.5 3.4-10.8 x10E3/uL RBC 3.52 3.77-5.28 x10E6/uL Hemoglobin 9.5 11.1-15.9 g/dL Hematocrit 31.3 34.0-46.6 % MCV 89 79-97 fL MCH 27.0 26.6-33.0 pg MCHC 30.4 31.5-35.7 g/dL RDW 13.6 11.7-15.4 % Platelets 270 150-450 x10E3/uL Neutrophils 52 Not Estab. % Lymphs 33 Not Estab. % Monocytes 11 Not Estab. % Eos 2 Not Estab. % Basos 1 Not Estab. % Neutrophils (Absolute) 1.9 1.4-7.0 x10E3/uL Lymphs (Absolute) 1.2 0.7-3.1 x10E3/uL Monocytes(Absolute) 0.4 0.1-0.9 x10E3/uL Eos (Absolute) 0.1 0.0-0.4 x10E3/uL Baso (Absolute) 0.0 0.0-0.2 x10E3/uL Immature Granulocytes 1 Not Estab. % Immature Grans (Abs) 0.0 0.0-0.1 x10E3/uL Urinalysis, Complete-[id number] Reviewed date:03/16/2024 09:41:46 AM Interpretation: Performing Lab:[facility] [place], [address] [facility], [place], Phone - [phone], Director - Otto Notes/Report: Specific [place] 1.007 1.005-1.030 pH 7.0 5.0-7.5 Urine-Color Yellow Yellow Appearance Clear Clear WBC Esterase Trace Negative Protein Negative Negative/Trace Glucose Negative Negative Ketones Negative Negative Occult Blood Negative Negative Bilirubin Negative Negative Urobilinogen,Semi-Qn 0.2 0.2-1.0 mg/dL Nitrite, Urine Negative Negative Microscopic Examination See below: Micr oscopic was indicated and was performed. WBC None seen 0 - 5 /hpf RBC None seen 0 - 2 /hpf Epithelial Cells (non renal) None seen 0 - 10 /hpf Casts None seen None seen /lpf Bacteria None seen None seen/Few Reason For Referral Reason [facility] GI Diagnosis 1 Gastrointestinal hem orrhage with melena (K92.1) Referral Organization [facility] Referring Provider First Name MELBA Referring Provider Last Name ZEE Referring Provider Speciality Internal edicine Referred Provider Specialty Gastroentero logy General Notes MATEO LOMELITEN 0 02/18/2024 10:36:20 AM >waiting for note to close, [phone], p- Clinical Notes Monse Jernigan 2023 10:14:51 AM >, Monse Jernigan 02/25/2024 10:14:53 AM >appt 03/23/2024 Referral Priority Routine Reason GI Bleed with [place] [facility] GI Diagnosis 1 Abdominal pain of un known etiology (R10.9) Referral Organization [facility] Referring Provider First Name NICK Referring Provider Last Name ZEE Referring Provider Speciality Internal [place] edicine Referred Provider Specialty Gastroentero logy General Notes Dr. Colin Taylor GI, [facility] ([place]), [address] [place] [address] Dr [address] [place] [id number], P , F [phone] Clinical Notes Urielelsijonathan Paris 2023 03:09:30 PM >Referral with notes and labs faxed. Called and LVM for pt, new referral for GI appt sent out on request of NKhan. MOURA Dale Fleming 04/09/2024 02:02:16 PM > The patient was seen on 03/19 Referral Priority Routine Medications Medication SIG (Take, Route, Frequency, Duration) Notes Start Date End Date Status Omeprazole Magnesium 20 MG 1 tablet 30 m inutes before morning meal Orally Once a day Active Ferrous Gluconate 324 (38 Fe) MG 1 tablet Orally Three times a Week Active Alendronate Sodium 70 MG 1 tablet 30 min utes before the first food, beverage or medicine of the day dissolved in 4 ounces of water Orally Active Vitamin D 50 MCG (2000 UT) 1 tablet Oral ly Once a day Active Calcium 500 MG 1 tablet with meals Orally Twice a day Active Social History Tobacco Use: Social History Observation Description Date Details (start date - stop date) Never Smoker NA - NA Tobacco Use/Smoking Question Answer Notes Are you a nonsmoker Problems Problem Type SNOMED Code ICD Code Onset Dates Problem Status W/U Status Risk Notes Problem Vitamin D deficiency (59843279) Vitamin D deficiency, unspecified (E55.9) Active confirmed Problem Lipid screening (463652150) Encounter for screening for lipoid disorders (Z13.220) Active confirmed Problem Endocrine/metabo lic screening (389438818) Encounter for screening for other suspected endocrine disorder (Z13.29) Active confirmed Problem Iron deficiency anemia (89064652) Other iron deficiency anemia (D50.8) Active confirmed Problem Adult health examination (957897923) Adult general medical exam (Z00.00) Active confirmed Problem Annual health maintenance examination (85552420) Annual physical exam (Z00.00) Active confirmed Problem Diabetes mellitus screening (353510447) Diabetes mellitus screening (Z13.1) Active confirmed Vital Signs Heart Rate 72 /min 10/20/2024 Oximetry 97 % 10/20/2024 Blood pressure diastolic 86 mm Hg 10/20/2024 Height 65 in 10/20/2024 Blood pressure systolic 132 mm Hg 10/20/2024 Weight 152.8 lbs 10/20/2024 BMI 25.42 kg/m2 10/20/2024 Encounters Encounter Location Date Provider Diagnosis [facility] [address] [place] [address] 02/18/2024 MELBA KOCH Hematochezia K92.1 ; Other iron deficiency anemia D50.8 and Acute cystitis with hematuria N30.[address] [facility] [address] [place] [address] 02/25/2024 MELBA KOCH Other iron deficienc y anemia D50.8 ; Hematochezia K92.1 and Acute cystitis with hematuria N30.[address] [address] [place] [address] 03/10/2024 MELBA KOCH Other iron deficienc y anemia D50.8 ; Hematochezia K92.1 ; Abdominal pain of unknown etiology R10.9 and Gastrointestinal hemorrhage, unspecified K92.[address] [address] [place] [address] 03/23/2024 MELBA KOCH Other iron deficienc y anemia D50.8 ; Hematochezia K92.1 ; Abdominal pain of unknown etiology R10.9 and Gastrointestinal hemorrhage, unspecified K92.[address] [place] [address] 10/20/2024 MELBA KOCH Adult general medica l exam Z00.00 ; Vitamin D deficiency, unspecified E55.9 and Encounter for screening for other suspected endocrine disorder Z13.29 [facility] [address] [place] [address] 02/19/2024 MELBA KOCH [facility] [address] [place] [address] 02/23/2024 MELBA KOCH [facility] [address] [place] [address] 03/12/2024 MELBA KOCH [facility] [address] [place] [address] 09/07/2024 MELBA KOCH [facility] [address] [address] 11/04/2024 MELBA KOCH Assessments Encounter Date Diagnosis (ICD Code) Assessment Notes Treatment Notes Treatment Clinical Notes Section Notes 02/18/2024 Other iron deficiency anemia (ICD-10 - D50.8) Reviewed discha rge notes from [place] as well as her ER visit. We will repeat blood work and follow-up in 10 days. In the meanwhile recommended the patient oral iron, we will also be requesting an appointment with surgical coordinator to follow-up for her GI bleeding. 02/18/2024 Hematochezia (ICD-10 - K92.1) Reviewed discha rge notes from [place] as well as her ER visit. We will repeat blood work and follow-up in 10 days. In the meanwhile recommended the patient oral iron, we will also be requesting an appointment with surgical coordinator to follow-up for her GI bleeding. 02/25/2024 Other iron deficiency anemia (ICD-10 - D50.8) She feels gaby r, no more episdoes of dark urine. Reviewed discharge notes from [place] as well as her ER visit. We will repeat blood work and follow-up in 10 days. In the meanwhile recommended the patient oral iron. She has an appointment with surgical coordinator to follow-up for her GI bleeding. 02/25/2024 Hematochezia (ICD-10 - K92.1) She feels gaby r, no more episdoes of dark urine. Reviewed discharge notes from [place] as well as her ER visit. We will repeat blood work and follow-up in 10 days. In the meanwhile recommended the patient oral iron. She has an appointment with surgical coordinator to follow-up for her GI bleeding. 03/10/2024 Other iron deficiency anemia (ICD-10 - D50.8) She feels gaby r, no more episdoes of dark urine. Reviewed discharge notes from [place] as well as her ER visit. We will repeat blood work and follow-up in 10 days. In the meanwhile recommended the patient oral iron. She has an appointment with surgical coordinator to follow-up for her GI bleedingThere is [...] oral iron. She has an appointment with surgical coordinator to follow-up for her GI bleedingThere is [...] oral iron. She has an appointment with surgical coordinator to follow-up for her GI bleedingThere is [...] oral iron. She has an appointment with surgical coordinator to follow-up for her GI bleedingThere is decline in her hemoglobin since her last appointment. This is worrisome in the setting of recent GI bleed. She has her endoscopy scheduled for tomorrow. 10/20/2024 Adult general medical exam (ICD-10 - Z00.00) Patient works at a [employer], 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 #History of lower GI bleed in December 2021, had complete evaluation including capsule endoscopy that was normal/unable to locate the site of bleed. Patient reports off-and-on lower GI bleed with consumption of meat. #Lpdv-il-ghjj bilaterally knee arthritis, has been recommended surgery, [...] log exercise and discussed fitness Apps like [employer] which can help keep log off calories [...] and hemoglobin A1c testing might be appropriate. 10/20/2024 Vitamin D deficiency, unspecified (ICD-10 - E55.9) Patient works at a ch[employer], 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 #History of lower GI bleed in December 2021, had complete evaluation including capsule endoscopy that was normal/unable to locate the site of bleed. Patient reports off-and-on lower GI bleed with consumption of meat. #Vzvz-zg-znim bilaterally knee arthritis, has been recommended surgery, [...] log exercise and discussed fitness Apps like [employer] which can help keep log off calories [...] and hemoglobin A1c testing might be appropriate. 03/23/2024 Abdominal pain of unknown etiology (ICD-10 - R10.9) She feels gaby r, no more episdoes of dark urine. Reviewed discharge notes from [place] as well as her ER visit. We will repeat blood work and follow-up in 10 days. In the meanwhile recommended the patient oral iron. She has an appointment with surgical coordinator to follow-up for her GI bleedingThere is [...] oral iron. She has an appointment with surgical coordinator to follow-up for her GI bleedingThere is [...] oral iron. She has an appointment with surgical coordinator to follow-up for her GI bleeding. 02/18/2024 Acute cystitis with hematuria (ICD-10 - N30.01) Reviewed dischar ge notes from [place] as well as her ER visit. We will repeat blood work and follow-up in 10 days. In the meanwhile recommended the patient oral iron, we will also be requesting an appointment with surgical coordinator to follow-up for her GI bleeding. 03/10/2024 Gastrointestinal hemorrhage, unspecified (ICD-10 - K92.2) She feels better , no more episdoes of dark urine. Reviewed discharge notes from [facility] as well as her ER visit. We will repeat blood work and follow-up in 10 days. In the meanwhile recommended the patient oral iron. She has an appointment with surgical coordinator to follow-up for her GI bleedingThere is [...] of dark urine. Reviewed discharge notes from [facility] as well as her ER visit. We will repeat blood work and follow-up in 10 days. In the meanwhile recommended the patient oral iron. She has an appointment with surgical coordinator to follow-up for her GI bleedingThere is decline in her hemoglobin since her last appointment. This is worrisome in the setting of recent GI bleed. She has her endoscopy scheduled for tomorrow. 10/20/2024 Encounter for screening for other suspected endocrine disorder (ICD-10 - Z13.29) Patient works at a ch[employer], 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 #History of lower GI bleed in December 2021, had complete evaluation including capsule endoscopy that was normal/unable to locate the site of bleed. Patient reports off-and-on lower GI bleed with consumption of meat. #Gfmv-yi-agbc bilaterally knee arthritis, has been recommended surgery, [...] log exercise and discussed fitness Apps like [employer] which can help keep log off calories [...] and hemoglobin A1c testing might be appropriate. Plan Of Treatment Pending Test Test Name Order Date LIPID PANEL, STANDARD 05/07/2023 LIPID PANEL, STANDARD 03/23/2024 COMPREHENSIVE METABOLIC PANEL 03/23/2024 COMPREHENSIVE METABOLIC PANEL 05/07/2023 COMPREHENSIVE METABOLIC PANEL 02/18/2024 CBC (INCLUDES DIFF/PLT) 02/18/2024 CBC (INCLUDES DIFF/PLT) 02/25/2024 CBC (INCLUDES DIFF/PLT) 05/07/2023 CBC (INCLUDES DIFF/PLT) 03/23/2024 CBC (INCLUDES DIFF/PLT) 10/20/2024 URINALYSIS, COMPLETE 02/18/2024 HEMOGLOBIN A1c 03/10/2024 TSH 05/07/2023 TSH 10/20/2024 VITAMIN D,25-OH,TOTAL,IA 05/07/2023 VITAMIN D,25-OH,TOTAL,IA 03/23/2024 HEMATOCRIT 03/10/2024 Next Appt Details Provider Name:MELBA KOCH, 10:00:00 AM, [address], [place], [address], Insurance Providers Payer Name Payer Address Payer Phone Subscriber Number Group Number Insured Name Patient Relationship to Insured Coverage Start Date Coverage End Date [facility] [address] [facility] [id number] Deidre Sparks Self - patient is the insured 3 Medical (General) History Medical History History ICD Code osteoporosis
== END 2025-02-14 08:00 | disposition home or self-care (01) ==
LOC: HO.US 07:59
PROVIDERS: PCP Internal Medicine; Visit Provider Internal Medicine Gastroenterology
DX: R10.9 Unspecified abdominal pain (principal)
CPT/HCPCS: 76700

== ENCOUNTER → 2025-02-14 07:59 | Outpatient (BNV) | payer OTHER, SELFPAY | PROVIDERS: PCP Internal Medicine; Visit Provider Radiology Diagnostic Radiology | DX: R10.9 Unspecified abdominal pain (principal) | CPT/HCPCS: 76700 ==